=== PATIENT | female | born 1930 | race Caucasian/White ===

== ENCOUNTER 2017-08-02 00:43 | Inpatient (IN) | payer OTHER ==
[~2017-08-02] VITALS: Ht 157.5 cm; Wt 65.3 kg
[~2017-08-02 00:43] MED LIST: ACET-1346 PO; ATEN50TA PO; BISA10SU38 PR; LEVE750T PO; LPR25 PO; LPT20 PO; MAGNSUS73 PO; NOTE:; SULF800T23 PO
[2017-08-02] MEDS ORDERED: SODIUM CHLORIDE 0.9% 1000ML 1,000 ML IV SCH (01:02)
[2017-08-02 01:11] LABS: BASO % 0.3 %; BASO ABS # 0.02 K/uL (0-0.2); COMPLETE YES; EOS % 0.5 %; HEMATOCRIT 38.6 % (37-47); IG% 0.2 %; LYMPH % 23.5 %; LYMPH ABS # 1.44 K/uL (1.2-3.4); MEAN CELL VOLUME 86.5 fL (80-100); MEAN CORPUSCULAR HEMOGLOBIN 28.7 pg (25-34); MEAN CORPUSCULAR HGB CONC 33.2 g/dl (32-36); MEAN PLATELET VOLUME 10.5 fL (7.4-10.4); MONO % 8.5 %; PLATELET COUNT 156 K/uL (130-400); RED BLOOD COUNT 4.46 M/uL (4.2-5.4); WHITE BLOOD COUNT 6.14 K/uL (4.8-10.8)
[2017-08-02] MEDS ORDERED: ASPI-435 PO (01:22)
[2017-08-02] MEDS ORDERED: CITA10TA8 PO (01:22)
[2017-08-02] MEDS ORDERED: CITA20TA9 PO (01:22)
[2017-08-02] MEDS ORDERED: ATOR-22 PO (01:24)
[2017-08-02] MEDS ORDERED: ACET-1311 PO (01:24)
[2017-08-02] MEDS ORDERED: IBUP-103 PO (01:24)
[2017-08-02] MEDS ORDERED: MULT-610 PO (01:25)
--- NOTE | 2017-08-02 01:25 | EMERGENCY ROOM VISIT NOTE ---
History Report prepared by Zulyibsukhjinder: Henny Leung Under the Supervision of: Dr. Felicia Boyd D.O. 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 The patient's family states that the patient has had urinary incontinence throughout the day today which is unusual for her. Her daughter reports that her cognition has not been normal today and she notes slurred speech and blank stares throughout the day. She notes that before she went to bed and she checked on the patient who was gurgling, clenching, and foaming at the mouth and was unresponsive. The family denies any seizure activity today but reports that she does have a history of seizures in 2013 when she was diagnosed with a meningioma that has since been partially resected. Per EMS, the patient had an episode of vomiting tonight on arrival. They report that she was partially responsive and not following commands on arrival. They note that since the patient's resection, the has only been able to speak Yi. The patient complains of abdominal pain. The family notes that the patient has had a cold but they deny any chest pain and shortness of breath. The family states that they tried to take the patient for a follow up MRI of her brain 6 months ago but she did not get the MRI due to claustrophobia. 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 They complain of slurred speech and blank stares. Review of Systems See HPI for pertinent positives & negatives. A total of 10 systems reviewed and were otherwise negative. Past Medical & Surgical Medical Problems: (1) Benign brain tumor (2) History of meningioma (3) Seizure Family History No pertinent family history Social History Smoking Status: Never Smoker Alcohol Use: none Drug Use: none Marital Status: Housing Status: skilled nursing Occupation Status: retired Current/Historical Medications Scheduled Aspirin (Aspirin 81), 81 MG PO DAILY Atenolol (Tenormin), 50 MG PO DAILY Atorvastatin (Lipitor), 20 MG PO DAILY Citalopram Hydrobromide (Celexa), 10 MG PO DAILY Citalopram Hydrobromide (Celexa), 20 MG PO DAILY Multiple Vitamins W/ Minerals (Centrum Adults), 1 TAB PO DAILY Sulfamethoxazole-Trimethoprim (Bactrim Ds 800MG/160MG), 1 TAB PO BID Scheduled PRN Acetaminophen (Tylenol), 650 MG PO Q4 PRN for Pain or Fever Ibuprofen Tab (Advil), 200 MG PO Q4 PRN for Pain or Fever Polyethylene Glycol 3350 (Miralax), 17 GM PO Q12 PRN for Constipation Allergies Coded Allergies: Haloperidol (Verified Allergy, Unknown, Confusion., 02/04/14) Reported by daughters. Lorazepam (Verified Allergy, Unknown, Confusion., 02/04/14) Reported by daughters. Physical Exam Vital Signs Date Time Temp Pulse Resp B/P (MAP) Pulse Ox O2 Delivery O2 Flow Rate FiO2 08/02/17 02:13 64 19 90 Nasal Cannula 2.0 08/02/17 01:43 77 22 94 Nasal Cannula 2.0 08/02/17 01:25 93 Nasal Cannula 2.0 08/02/17 01:13 73 21 93 Nasal Cannula 2.0 08/02/17 01:09 36.7 73 18 176/86 91 Room Air 08/02/17 01:08 80 08/02/17 01:04 176/86 Physical Exam HEENT: Head - normocephalic and atraumatic. Pupils are equal, round, and reactive to light. Extraocular eye muscles are intact and sclera are anicteric. Left eyelid droop that is normal for her. Ears - bilaterally patent canals with noninjected tympanic membranes and no evidence of hemotympanum. Nose - moist nasal mucosa without discharge. Mouth - moist buccal mucosa. Oropharynx is nonerythematous and there is no tonsillar exudate or edema noted. Neck: Supple; no JVD, nuchal rigidity, cervical lymphadenopathy, or auscultated bruits. Heart: Regular rate and rhythm. There is a normal S1 and S2 with no murmurs, clicks, or gallops appreciated. Lungs: Clear to auscultation bilaterally with no wheezes, rales, or rhonchi. Abdomen: Soft, completely nontender, nondistended, with good bowel sounds. There are no palpable pulsatile masses or hepatosplenomegaly. There is no guarding, rigidity, or rebound noted. Extremities: No evidence of cyanosis, clubbing, or edema. Neuro:The patient is awake and alert, follows commands. She is alert but not oriented to time or place. There are easily palpable peripheral pulses. The patient has equal tennis player strength and equal pedal push and pull. Completed with assistance of daughters translating. Negative babinski Medical Decision & Procedures ER Provider Diagnostic Interpretation: Radiology results as stated below per my review and the radiologist's interpretation: CT HEAD: Comparison 2013. There is also an MRI from 04/04/16. No intracranial hemorrhage. Chronic appearing ischemic changes, postop changes and encephalomalacia. No CT evidence for acute large vessel infarct is identified. MRI is more sensitive, if indicated. There is some calcific density in region of surgical change. Could represent residual meningioma or possibly hyperostosis. Radiologist: Vasu Watson M.D. Laboratory Results 08/02/17 00:36 Red Blood Count 4.46, Mean Corpuscular Volume 86.5, Mean Corpuscular Hemoglobin 28.7, Mean Corpuscular Hemoglobin Concent 33.2, Mean Platelet Volume 10.5, Neutrophils (%) (Auto) 67.0, Lymphocytes (%) (Auto) 23.5, Monocytes (%) (Auto) 8.5, Eosinophils (%) (Auto) 0.5, Basophils (%) (Auto) 0.3, Neutrophils # (Auto) 4.12, Lymphocytes # (Auto) 1.44, Monocytes # (Auto) 0.52, Eosinophils # (Auto) 0.03, Basophils # (Auto) 0.02 08/02/17 01:11 Test 08/02/17 00:00 08/02/17 00:36 08/02/17 01:11 08/02/17 01:15 White Blood Count 6.14 K/uL (4.8-10.8) Red Blood Count 4.46 M/uL (4.2-5.4) Hemoglobin 12.8 g/dL (12.0-16.0) Hematocrit 38.6 % (37-47) Mean Corpuscular Volume 86.5 fL (80-100) Mean Corpuscular Hemoglobin 28.7 pg (25-34) Mean Corpuscular Hemoglobin Concent 33.2 g/dl (32-36) Platelet Count 156 K/uL (130-400) Mean Platelet Volume 10.5 fL (7.4-10.4) Neutrophils (%) (Auto) 67.0 % Lymphocytes (%) (Auto) 23.5 % Monocytes (%) (Auto) 8.5 % Eosinophils (%) (Auto) 0.5 % Basophils (%) (Auto) 0.3 % Neutrophils # (Auto) 4.12 K/uL (1.4-6.5) Lymphocytes # (Auto) 1.44 K/uL (1.2-3.4) Monocytes # (Auto) 0.52 K/uL (0.11-0.59) Eosinophils # (Auto) 0.03 K/uL (0-0.5) Basophils # (Auto) 0.02 K/uL (0-0.2) RDW Standard Deviation 47.3 fL (36.4-46.3) RDW Coefficient of Variation 14.9 % (11.5-14.5) Immature Granulocyte % (Auto) 0.2 % Immature Granulocyte # (Auto) 0.01 K/uL (0.00-0.02) Prothrombin Time 10.7 SECONDS (9.0-12.0) Prothromb Time International Ratio 1.0 (0.9-1.1) Activated Partial Thromboplast Time 25.8 SECONDS (21.0-31.0) Partial Thromboplastin Ratio 1.0 Est Creatinine Clear Calc Drug Dose 41.8 ml/min Estimated GFR () 69.0 Estimated GFR (Non- 59.5 BUN/Creatinine Ratio 14.3 (10-20) Calcium Level 8.6 mg/dl (8.5-10.1) Magnesium Level 1.9 mg/dl (1.8-2.4) Total Creatine Kinase 76 U/L (26-192) Creatine Kinase MB 0.7 ng/ml (0.5-3.6) Creatine Kinase MB Ratio 0.9 (0-3.0) Troponin I < 0.015 ng/ml (0-0.045) Bedside Hemoglobin 12.6 g/dl (12.0-16.0) Bedside Hematocrit 37 % (37-47) Bedside Sodium 142 mEq/L (135-144) Bedside Potassium 3.3 mEq/L (3.3-5.0) Bedside Chloride 103 mEq/L (101-112) Bedside Total CO2 25 mEq/l (24-31) Anion Gap 17.0 mmol/L (16-25) Bedside Blood Urea Nitrogen 12 mg/dl (7-18) Bedside Creatinine 0.8 mg/dl (0.6-1.3) Bedside Glucose (other) 141 mg/dl (70-99) Bedside Ionized Calcium (Renée) 1.12 mmol/l (1.12-1.32) Laboratory results per my review. Medications Administered Medications (Trade) Dose Ordered Sig/Martha Route Start Time Stop Time Status Last Admin Dose Admin Sodium Chloride 1,000 ml @ 50 mls/hr Q20H IV 08/02/17 01:02 08/02/17 04:05 DC 08/02/17 01:02 50 MLS/HR Procedure 0102: Sodium Chloride 1000 ml @ 50 mls/hr IV. ECG Indication: altered mental status Rate (beats per minute): 73 Rhythm: normal sinus Findings: no acute ischemic change, no ectopy ED Course 0058: Past medical records reviewed. The patient was evaluated in room B1. A complete history and physical exam was performed. A stroke protocol was performed. The patient went directly for CT scan of the brain. I discussed the situation at length with the daughters who arrived in the emergency department. 0102: Sodium Chloride 1000 ml @ 50 mls/hr IV. I kept the daughters abreast of the situation. 0205: I reevaluated the patient and updated her family. 0216: Discussed the patient's case with Dr. Fenton of [facility]. The patient will be evaluated for further management. 0239: Upon reevaluation, I discussed findings and results with the patient and her family. They verbalized agreement of the treatment plan. I spoke with Dr. Fenton of the [facility] Hospitalist Service. The patient will be evaluated for further management and care. Medical Decision The patient is a 87 year old female who presents to the ED with unresponsiveness. Differential diagnosis includes intracranial hemorrhage, seizure, stroke, recurrent meningioma. LABS: Glucose 141 Normal Renal Function Stable H&H Normal Electrolytes No leukocytosis Stable H&H Potassium slightly low at 3.2 Normal Renal Function Glucose 137 Negative Troponin Normal Coags it seems that the patient may have suffered a seizure at home. No tonic-clonic activity was witnessed but upon EMS arrival, the patient seemed to be in a postictal state. The daughter describes clenched teeth and foaming at the mouth. Of note, the patient presented 3 years ago with a seizure which led to the diagnosis of her meningioma. She has not had a follow-up CT or MRI since the neurosurgery. Seizure precautions were taken. The patient's mental status has improved but has not returned to cognitive baseline. The patient would normally know where she is but does not at this time. I discussed the case with the [facility] Hospitalist and they will evaluate further management. Medication Reconcilliation Current Medication List: was personally reviewed by me Blood Pressure Screening Patient's blood pressure: Elevated blood pressure Addressed as inpatient. Consults Time Called: [phone] Consulting Physician: Dr. Jsosy Echavarria Returned Call: [phone] Discussed the patient's case with Dr. Fenton of [facility]. The patient will be evaluated for further management. Impression Primary Impression: Altered mental status Scribe Attestation The scribe's documentation has been prepared under my direction and personally reviewed by me in its entirety. I confirm that the note above accurately reflects all work, treatment, procedures, and medical decision making performed by me. Departure Information Dispostion Being Evaluated By Hospitalist Referrals Junior Cantu III, M.D. (PCP) Patient Instructions [facility] Problem Qualifiers Primary Impression: Altered mental status Altered mental status type: unspecified Qualified Codes: R41.82 - Altered mental status, unspecified
[2017-08-02 01:26] LABS: PROTHROMBIN TIME (PATIENT) 10.7 SECONDS (9.0-12.0)
[2017-08-02] MEDS ORDERED: POLY335019 PO (01:26)
[2017-08-02 01:27] LABS: ISTAT CREATININE 0.8 mg/dl (0.6-1.3); ISTAT HEMOGLOBIN 12.6 g/dl (12.0-16.0); ISTAT IONIZED CALCIUM 1.12 mmol/l (1.12-1.32)
[2017-08-02 01:57] LABS: BLOOD UREA NITROGEN 13 mg/dl (7-18); BUN/CREATININE RATIO 14.3 (10-20); CALCIUM 8.6 mg/dl (8.5-10.1); CARBON DIOXIDE 27 mmol/L (21-32); CHLORIDE 105 mmol/L (98-107); CREATININE 0.88 mg/dl (0.60-1.20); GLUCOSE 137 mg/dl (70-99); MAGNESIUM 1.9 mg/dl (1.8-2.4); POTASSIUM 3.2 mmol/L (3.5-5.1); SODIUM 139 mmol/L (136-145)
[2017-08-02 02:01] LABS: CKMB/CK RATIO 0.9 (0-3.0)
--- NOTE | 2017-08-02 02:19 | History and Physical ---
History & Physical Date & Time of Service: Aug 02, 2017 at 02:19 Chief Complaint: unresponsiveness . Primary Care Physician: Junior Cantu III, M.D. History of Present Illness Source: patient, family, clinic records, hospital records 87 YO female followed by Dr. Cantu. History of hypertension, dyslipidemia. Was doing well until late 2012 / early 2013 when she was noted to have problems with memory. MRI August 2013 demonstrated a large frontoparietal mass measuring 5 cm with associated edema and mass effect. Appearance consistent with meningioma. Referred to Dr. Aguirre for Neurosurgical recommendations. Arrangements were made for elective resection. Prior to the scheduled surgery, patient had a generalized seizure. She was hospitalized. Meningioma was resected during that hospital stay. Was started on levetiracetam for seizure at that time. She as transferred to [facility] for rehab, eventually returned to live with her daughters (alternates between their homes). Levetiracetam was eventually discontinued. Family has noted progressive confusion since meningioma was resected. She is bilingual, speaking Slovak and Palauan, but has mostly used her venetie tongue since then. Daughter noted increasing confusion and weakness past few days. Today she was incontinent of foul-smelling urine. Also noted to have rhinitis and occasional cough. Seen in clinic. Temp was 101. Noted to have suprapubic tenderness; felt to have UTI and prescribed TMP/sulfa. Tonight around 2300 daughter found her to be unresponsive She was clenching her teeth and had upper airway sounds and foaming at the mouth. No generalized tonic-clonic activity. EMS summoned. Episode of emesis at home. Patient started to regain consciousness; daughter noted that she seemed to have weakness of LUE. Brought to ED for further evaluation. By the time of my assessment, patient was more alert and denied any problems whatsoever. . Past Medical/Surgical History Chronic and Resolved Medical Problems: (1) Dementia Status: Chronic (2) Dyslipidemia Status: Chronic (3) History of meningioma Status: Chronic (4) History of seizure Permanent Comment: associated with meningioma 2013 Status: Chronic (5) Hypertension Status: Chronic Surgical Problems: (1) Status post resection of meningioma Permanent Comment: Dr. Aguirre 2013 Status: Chronic . Family History SISTER Stroke SISTER Stroke Social History Smoking Status: Never Smoker Alcohol Use: none Drug Use: none Marital Status: Housing status: lives with family Occupational Status: retired Multi-Drug Resistant Organisms History of MDRO: No Allergies Coded Allergies: Haloperidol (Verified Allergy, Unknown, Confusion., 02/04/14) Reported by daughters. Lorazepam (Verified Allergy, Unknown, Confusion., 02/04/14) Reported by daughters. Home Medications Scheduled Aspirin (Aspirin 81), 81 MG PO DAILY Atenolol (Tenormin), 50 MG PO DAILY Atorvastatin (Lipitor), 20 MG PO DAILY Citalopram Hydrobromide (Celexa), 10 MG PO DAILY Citalopram Hydrobromide (Celexa), 20 MG PO DAILY Multiple Vitamins W/ Minerals (Centrum Adults), 1 TAB PO DAILY Sulfamethoxazole-Trimethoprim (Bactrim Ds 800MG/160MG), 1 TAB PO BID Scheduled PRN Acetaminophen (Tylenol), 650 MG PO Q4 PRN for Pain or Fever Ibuprofen Tab (Advil), 200 MG PO Q4 PRN for Pain or Fever Polyethylene Glycol 3350 (Miralax), 17 GM PO Q12 PRN for Constipation Review of Systems Unable to obtain ROS due to patient's confusion. . Physical Exam Vital Signs Date Time Temp Pulse Resp B/P (MAP) Pulse Ox O2 Delivery O2 Flow Rate FiO2 08/02/17 01:25 93 Nasal Cannula 2.0 08/02/17 01:09 36.7 73 18 176/86 91 Room Air 08/02/17 01:08 80 General Appearance: WD/WN, no apparent distress Head: normocephalic, atraumatic Eyes: PERRL, EOMI, sclerae normal, + pertinent finding (left ptosis; conjunctivae clear) ENT: hearing grossly normal, pharynx normal Neck: supple, no adenopathy, thyroid normal, no JVD, no carotid bruits, trachea midline Respiratory/Chest: lungs clear, no respiratory distress, no accessory muscle use Cardiovascular: regular rate, rhythm, no edema, no gallop, no JVD, no murmur, normal peripheral pulses Abdomen/GI: normal bowel sounds, non tender, soft, no organomegaly, no pulsatile mass Extremities/Musculoskelatal: normal inspection, no calf tenderness, normal capillary refill, no pedal edema 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 (PERRL, EOMI, no facial palsy), no motor/sensory deficits (motor strength upper and lower extremities- generalized mild weakness), alert, + disoriented Skin: normal color, warm/dry, no rash Lymphatic: no adenopathy (cervical) Diagnostics Laboratory Results Results Past 24 Hours Test 08/02/17 00:36 08/02/17 01:11 08/02/17 01:15 Range/Units White Blood Count 6.14 4.8-10.8 K/uL Red Blood Count 4.46 4.2-5.4 M/uL Hemoglobin 12.8 12.0-16.0 g/dL Hematocrit 38.6 37-47 % Mean Corpuscular Volume 86.5 80-100 fL Mean Corpuscular Hemoglobin 28.7 25-34 pg Mean Corpuscular Hemoglobin Concent 33.2 32-36 g/dl Platelet Count 156 130-400 K/uL Mean Platelet Volume 10.5 7.4-10.4 fL Neutrophils (%) (Auto) 67.0 % Lymphocytes (%) (Auto) 23.5 % Monocytes (%) (Auto) 8.5 % Eosinophils (%) (Auto) 0.5 % Basophils (%) (Auto) 0.3 % Neutrophils # (Auto) 4.12 1.4-6.5 K/uL Lymphocytes # (Auto) 1.44 1.2-3.4 K/uL Monocytes # (Auto) 0.52 0.11-0.59 K/uL Eosinophils # (Auto) 0.03 0-0.5 K/uL Basophils # (Auto) 0.02 0-0.2 K/uL RDW Standard Deviation 47.3 36.4-46.3 fL RDW Coefficient of Variation 14.9 11.5-14.5 % Immature Granulocyte % (Auto) 0.2 % Immature Granulocyte # (Auto) 0.01 0.00-0.02 K/uL Prothrombin Time 10.7 9.0-12.0 SECONDS Prothromb Time International Ratio 1.0 0.9-1.1 Activated Partial Thromboplast Time 25.8 21.0-31.0 SECONDS Partial Thromboplastin Ratio 1.0 Sodium Level 139 136-145 mmol/L Potassium Level 3.2 3.5-5.1 mmol/L Chloride Level 105 98-107 mmol/L Carbon Dioxide Level 27 21-32 mmol/L Anion Gap 7.0 17.0 16-25 mmol/L Blood Urea Nitrogen 13 7-18 mg/dl Creatinine 0.88 0.60-1.20 mg/dl Est Creatinine Clear Calc Drug Dose 41.8 ml/min Estimated GFR () 69.0 Estimated GFR (Non- 59.5 BUN/Creatinine Ratio 14.3 10-20 Random Glucose 137 70-99 mg/dl Calcium Level 8.6 8.5-10.1 mg/dl Magnesium Level 1.9 1.8-2.4 mg/dl Total Creatine Kinase 76 26-192 U/L Creatine Kinase MB 0.7 0.5-3.6 ng/ml Creatine Kinase MB Ratio 0.9 0-3.0 Troponin I < 0.015 0-0.045 ng/ml Bedside Hemoglobin 12.6 12.0-16.0 g/dl Bedside Hematocrit 37 37-47 % Bedside Sodium 142 135-144 mEq/L Bedside Potassium 3.3 3.3-5.0 mEq/L Bedside Chloride 103 101-112 mEq/L Bedside Total CO2 25 24-31 mEq/l Bedside Blood Urea Nitrogen 12 7-18 mg/dl Bedside Creatinine 0.8 0.6-1.3 mg/dl Bedside Glucose (other) 141 70-99 mg/dl Bedside Ionized Calcium (Renée) 1.12 1.12-1.32 mmol/l Diagnostic Radiology CT head (preliminary report per [facility]): postsurgical changes / encephalomalacia chronic small vessel ischemic changes no bleed no apparent acute ischemic event . EKG EKG performed at 01:06 reviewed and demonstrated NSR at 70 / minute, baseline artifact, no acute ST or T-wave changes.. . Impression Assessment and Plan ALTERED MENTAL STATUS Possible seizure. K low. Mg low-normal. Possible cerebrovascular event. CT head shows postsurgical changes from resection of meningioma, small vessel ischemic changes, no acute finding. Check MRI brain (with and without contrast). Will not start anticonvulsants pending further evaluation and Neuro input. Correct electrolyte abnormalities. Check EEG. Seizure precautions. Monitor for arrhythmias. Check carotid duplex. Continue aspirin and statin. 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 Consult Neuro. Doubt CUT OFF SAW OPERATOR infection, but consider LP if neuro status worsens. POSSIBLE UTI UA shows leukocyte esterase, WBC's, epithelial cells, no bacteria. Received 1 dose of TMP /sulfa prior to admission. Urine culture ordered. IV ceftriaxone pending culture results. RESPIRATORY SYMPTOMS Experiencing rhinorrhea and cough. BIOLOGY DEPARTMENT CHAIR swab for influenza A/B PCR negative. Check chest x-ray. HYPERTENSION Hemodynamically stable. Continue atenolol. DYSLIPIDEMIA Continue atorvastatin. DEMENTIA Monitor for signs of delirium. Avoid benzodiazepines if able. VTE PROPHYLAXIS No anticoagulants at this time- may need LP. SCD's. Ambulate as able. RESUSCITATION STATUS Full code per discussion with daughter Bianca. DISPOSITION Admit to Telemetry Unit. Expected discharge to home, but may need skilled care or rehab first. Family Medicine follow-up with Dr. Cantu. . VTE Prophylaxis Given or contraindicated: SCD's
[2017-08-02] MEDS ORDERED: IV FLUIDS COMPLETED PRN (03:00)
[2017-08-02] MEDS ORDERED: PHARMACIST DISCHARGE MED REC CONSULT PRN (03:30)
[2017-08-02] MEDS ORDERED: NON-FORMULARY MEDICATION (Polyethylene Glycol 3350 (Miralax) 17 GM) PO PRN (03:30)
[2017-08-02 03:36] LABS: URINE APPEARANCE CLEAR (CLEAR); URINE BILIRUBIN NEG (NEG); URINE COLOR YELLOW; URINE EPITHELIAL CELL AUTO >30 /lpf (0-5); URINE NITRITE NEG (NEG); URINE PH 5.5 (4.5-7.5); URINE SPECIFIC GRAVITY 1.021 (1.000-1.030); UROBILINOGEN NEG (NEG)
[2017-08-02 03:53] LABS: MANUAL MICROSCOPIC REQUIRED? NO; REVIEW REQ? YES
[2017-08-02 03:58] VITALS: BP 162/73; PULSE 62; TEMP 36.8; O2SAT 93; Ht 157.5 cm; Wt 65.3 kg
[2017-08-02] MEDS ORDERED: PNEUMOCOCCAL ADMINISTRATION CHARGE ONE (04:15)
[2017-08-02] MEDS ORDERED: POLYETHYLENE (MIRALAX) 17 GM PACK PO PRN (04:15)
[2017-08-02] MEDS ORDERED: PNEUMOCOCCAL POLYSACCHARIDES 25 MCG/0.5 ML VIAL/SYR IM. ONE (04:15)
[2017-08-02] MEDS: D5W AND 1/2NSS + 20MEQ KCL 1,000 ML IV SCH ×3 (04:59→19:36)
[2017-08-02] MEDS: CEFTRIAXONE SOD INJ 1 GM in DEXTROSE 5% ADD-VANTAGE 50ML 50 ML IV SCH (04:59)
[2017-08-02 06:15] LABS: INFLUENZA A PCR Neg for Influ A (NEG); INFLUENZA B PCR Neg for Influ B (NEG)
--- NOTE | 2017-08-02 06:38 | DIAGNOSTIC IMAGING REPORT ---
HEAD WITHOUT CONTRAST (CT) CLINICAL HISTORY: 87 years-old Female with STROKE SYMPTOMS. Acute strokelike symptoms . History of prior meningioma removal TECHNIQUE: Multiple axial CT images of the head were obtained without contrast. A dose lowering technique was utilized adhering to the principles of ALARA. COMPARISON: Head CT 11/26/2013, brain MR 04/04/2016. FINDINGS: No acute intracranial hemorrhage, midline shift or definite abnormal extra-axial collections. No hydrocephalus. Postoperative changes from prior right sphenoid wing meningioma resection with encephalomalacia and volume loss again seen within the right frontal and temporal lobes. Asymmetric ex vacuo dilation of the right lateral ventricle frontal and temporal horns. Mild to moderate background brain atrophy with chronic microvascular ischemic changes. Calcification within the region of the right sphenoid wing is again noted which has not significantly changed. No definite acute territorial infarction. No acute calvarial fracture. Postoperative changes of the right frontal and temporal calvarium. Soft tissues are unremarkable. Orbits are symmetric. Mastoid air cells and paranasal sinuses are generally clear. IMPRESSION: 1. No acute intracranial hemorrhage or definite acute territorial infarction identified. 2. Postoperative changes from prior right sphenoid wing meningioma resection with right temporal craniotomy. There is persistent calcification within the region of the right sphenoid wing which is unchanged from comparison. Encephalomalacia and volume loss within the right frontal and temporal lobes with ex vacuo dilation of the right lateral ventricle frontal and temporal horns. 3. Mild to moderate brain atrophy with chronic microvascular ischemic changes. The above report was generated using voice recognition software. It may contain grammatical, syntax or spelling errors. Electronically signed by: Sadi Palomares M.D. 08/02/2017 6:36 AM Dictated Date/Time: 08/02/2017 6:30 AM
--- NOTE | 2017-08-02 07:10 | DIAGNOSTIC IMAGING REPORT ---
CHEST ONE VIEW PORTABLE HISTORY: 87 years-old Female cough acute cough COMPARISON: Chest and rib radiographs 03/14/2015 TECHNIQUE: Portable AP view of the chest FINDINGS: Cardiac silhouette is moderately enlarged, unchanged. Atherosclerosis of the aorta. No pneumothorax or large pleural effusion. Mild pulmonary vascular congestion without overt pulmonary edema. No lobar airspace consolidation. Bones of the chest appear grossly intact. Degenerative changes are seen within the shoulders and spine. Chronic left-sided rib fractures. IMPRESSION: 1. Cardiomegaly and mild pulmonary vascular congestion without overt pulmonary edema. 2. No lobar airspace consolidation to suggest pneumonia. The above report was generated using voice recognition software. It may contain grammatical, syntax or spelling errors. Electronically signed by: Sadi Palomares M.D. 08/02/2017 7:09 AM Dictated Date/Time: 08/02/2017 7:06 AM
[2017-08-02 08:00] VITALS: BP 134/71; PULSE 59; TEMP 37; O2SAT 93
[2017-08-02] MEDS ORDERED: MAGNESIUM SULFATE 1GM / D5W 1 GM in PREMIXED IN D5W 100 ML IV SCH (08:00)
[2017-08-02] MEDS: ATORVASTATIN 20 MG TAB PO SCH (08:40)
[2017-08-02] MEDS: CITALOPRAM 20 MG TAB PO SCH (08:41)
[2017-08-02] MEDS: ASPIRIN 81 MG ECTAB PO SCH (08:42)
[2017-08-02] MEDS ORDERED: CITALOPRAM 20 MG TAB PO SCH (09:00)
[2017-08-02] MEDS ORDERED: DIAZEPAM INJ 5 MG/ML 2 ML CARP IV ONE (10:00)
[2017-08-02] MEDS ORDERED: ALPRAZOLAM 0.5 MG TAB PO STA (10:31)
[2017-08-02 12:40] VITALS: BP 137/61; PULSE 64; TEMP 36.8; O2SAT 98
--- NOTE | 2017-08-02 12:54 | DIAGNOSTIC IMAGING REPORT ---
BRAIN WITHOUT CONTRAST HISTORY: 87 years-old Female possible seizure, possible TIA, history meningioma follow-up study in a patient with history of prior right-sided wing meningioma resection COMPARISON: Head CT of same day, brain MR 04/04/2016 and 12/29/2014 TECHNIQUE: Multiplanar multisequence MRI of the brain obtained without contrast. FINDINGS: Several of the sequences are very motion degraded. No restricted diffusion identified. Midline structures including the corpus callosum, brainstem, optic chiasm, pineal gland, pituitary gland and infundibulum are unremarkable as seen on the sagittal T1 series. No cerebellar tonsillar herniation. Advanced degenerative changes are seen within the imaged cervical spine. The coronal FLAIR images are severely motion degraded. There is mild to moderate brain atrophy with extensive T2/FLAIR prolongation within the subcortical, deep and periventricular white matter of the cerebral hemispheres bilaterally suggesting chronic microvascular ischemic changes. Postoperative changes from prior right calvarial craniotomy with meningioma resection. Large area of encephalomalacia and volume loss again seen within right frontal and temporal lobes with ex vacuo dilation of the right lateral ventricle frontal and temporal horns. Again noted is a 1.2 cm ill-defined area of nodularity within the region of the medial right temporal lobe and the posterior aspect of the cribriform plate nicely seen on image 9 series 5 and also noted on image 10 series 3 and image 9 series 6 which appears unchanged from comparison studies. Evaluation for residual or recurrent disease is limited without contrast. No acute intracranial hemorrhage, midline shift or hydrocephalus. The major flow voids at the level the skull base appear patent. Orbits appear symmetric. Trace left mastoid effusion. Mild mucosal thickening of the ethmoid air cells. Scalp and soft tissues are unremarkable. IMPRESSION: 1. Limited study secondary to motion artifact as above. Within the limitations of the study, no acute intracranial abnormality identified 2. Stable appearance of the postoperative changes as above with prior right calvarial craniotomy with meningioma resection. Encephalomalacia again seen within the right frontal and temporal lobes with 1.2 cm area of nodularity again noted within the region of the cribriform plate suggesting residual disease. Again, evaluation is limited without use of contrast. 3. Brain atrophy with extensive chronic microvascular ischemic changes. The above report was generated using voice recognition software. It may contain grammatical, syntax or spelling errors. Electronically signed by: Sadi Palomares M.D. 08/02/2017 12:53 PM Dictated Date/Time: 08/02/2017 12:42 PM
--- NOTE | 2017-08-02 13:11 | DIAGNOSTIC IMAGING REPORT ---
CAROTID ARTERY ULTRASOUND CLINICAL HISTORY: Stroke. COMPARISON STUDY: None. TECHNIQUE: Real-time, grayscale, and color Doppler sonography of the carotid and vertebral arteries was performed. Images were viewed in the transverse and longitudinal planes. FINDINGS: There is mild atherosclerotic plaque. Velocity measurements are listed below. COMMON CAROTID PEAK SYSTOLIC VELOCITY (CM/S): RIGHT 74 LEFT 92 ICA PEAK SYSTOLIC VELOCITY (CM/S): RIGHT 60 LEFT 69 Antegrade flow is seen in the vertebral arteries. The external carotid arteries are patent. Blood pressures were not obtained in this patient. IMPRESSION: No evidence for a hemodynamically significant stenosis. Electronically signed by: Kalin Agee M.D. 08/02/2017 1:09 PM Dictated Date/Time: 08/02/2017 1:07 PM
[2017-08-02 15:46] VITALS: BP 130/60; PULSE 63; TEMP 36.7; O2SAT 98
[2017-08-02 16:02] LABS: BUN/CREATININE RATIO 14.9 (10-20); CALCIUM 7.9 mg/dl (8.5-10.1); CREATININE 0.78 mg/dl (0.60-1.20); MAGNESIUM 2.2 mg/dl (1.8-2.4); POTASSIUM 3.4 mmol/L (3.5-5.1)
[2017-08-02] MEDS: LEVETIRACETAM 250 MG TAB PO SCH (17:49)
--- NOTE | 2017-08-02 18:39 | NEUROLOGY CONSULTATION ---
DATE OF CONSULTATION: 08/02/2017 REASON FOR CONSULTATION: Possible seizure. HISTORY OF PRESENT ILLNESS: Mrs. Wolfe is known to me. She is an 87-year-old who presented with a decline in cognition and change in personality. She was found to have a large right frontal meningioma. This was operated on electively several months thereafter, I believe in 2013. While she waited for surgery, she had a generalized seizure and was placed on Keppra. It looks like multiple different dosing regimens were used, although probably the most commonly listed on her outpatient chart was 750 b.i.d. It appears that at some point in 2013 that Keppra was discontinued. On this background, the patient who has had ongoing cognitive issues, was noted to have increased confusion and weakness for several days prior to admission. She was incontinent of foul smelling urine, had a runny nose and occasional cough. She was seen in clinic, her temperature was 101. She was thought to have UTI and prescribed Bactrim. I do not know if she had received a dose. At 11:00 p.m., her daughter found her to be unresponsive, clenching her teeth, upper airway sounds, foaming at the mouth. She had an episode of emesis at home, she started to regain consciousness. She appeared to have weakness of the left upper extremity, brought to the Emergency Room for further evaluation. LABORATORY DATA: On admission, white count 6, H&H 12.8/38.6, platelet count 156. Coags normal. Chemistry profile notable for a potassium of 3.2. Random glucose of 137. Urinalysis notable for 10-30 white cells, negative bacteria, moderate leukocyte esterase. Her electrocardiogram showed normal sinus rhythm, nonspecific ST-T wave abnormality abnormal. PAST MEDICAL HISTORY: Notable for dementia, dyslipidemia, the aforementioned meningioma, seizure, hypertension. SURGICAL HISTORY: Resection of meningioma. FAMILY HISTORY: Stroke. SOCIAL HISTORY: Nonsmoker. Does not drink alcohol, lives with her children, is from [place]. ALLERGIES: HALDOL AND LORAZEPAM. HOME MEDICATIONS: Aspirin, atenolol, atorvastatin, Celexa 30 mg, multiple vitamin, Bactrim, Tylenol, ibuprofen p.r.n. REVIEW OF SYSTEMS: Unable to obtain secondary to patient's confusion. The MRI of the brain show was limited secondary to motion artifact, stable postop changes, right calvarial craniotomy, encephalomalacia right frontal and temporal lobe with a 1.2 cm area of nodularity noted within the region the cribriform plate suggesting residual disease. The evaluation is limited without the use of contrast and there is atrophy as well as extensive microvascular changes. PHYSICAL EXAMINATION: VITAL SIGNS: 36.7, 63, 16, 130/60, 98%. NEUROLOGIC: The patient is sleepy, but arousable, very pleasant, only speaking in minimal Romanian, mostly in Kyrgyz, able to state his name. As she answers most of the questions in Kyrgyz I am uncertain as to whether she is oriented. She has difficulty following simple commands, difficulty naming and certainly has difficulty with even 1 step commands: Her head is normocephalic, atraumatic. I can feel a well-healed high right frontoparietal craniotomy site. Her pupils are equal. She develops prompt blepharospasm. I cannot visualize the optic nerves. No obvious facial asymmetry. Speech appears to be nondysarthric. I cannot determine if there is aphasia. There appears to be symmetric strength, symmetric drift in the uppers as well as symmetric strength in the lowers. The toes are downgoing. Reflexes are otherwise symmetric and sensory, cerebellar and gait are not testable. IMPRESSION: 1. Recurrent seizure. The patient has structural brain damage related to the previously resected meningioma and ongoing risk for sz. Her fever and illness may have reduced her seizure threshold. I think it is judicious to restart Keppra. We will start it at 250 b.i.d. in an effort to not exacerbate any delirium. After 1 week, can go to 500 b.i.d. and then as an outpatient see what her level is. If it is therapeutic and she has no further events, I think she can stay on that dosing. 2. By report, she had some post-event weakness in the left upper extremity. 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 3. The patient should see Dr. Wakefield in followup. FIONA
--- NOTE | 2017-08-02 18:55 | Progress Note ---
Internal Med Progress Note Date of Service: Aug 02, 2017. Provider Documentation: SUBJECTIVE: doesn't speak Sudanese pleasant got Xanax for MRI and was sedated later talked with daughter- patient was just started on Bactrim for uti LAst night patient was unresponsive and was having foam around her mouth but later regained consciousness and was brought to ER Daughter says there was no shaking OBJECTIVE: Vital Signs-as noted below Exam: General-alert and awake. not in distress ENT-Normal hearing Neck-no neck masses Lungs-Cta b/l no wheezing or crackles Heart-S1 and S2 heard regular No murmurs Abdomen-Soft Bowel sounds present Non tender No distension Extremities-No edema No erythema Neuro-alert and awake moves extremities Lab data as noted below. ASSESSMENT & PLAN: ALTERED MENTAL STATUS Encephalopathy most likely seizure. ct and mri head no acute findings- severe micro vascular disease and post op changes with some residual meningioma UTI playing a role. seen by neurology and appreciate inputs' started on Keppra POSSIBLE UTI Received 1 dose of TMP /sulfa prior to admission. will f/u Urine culture on IV ceftriaxone RESPIRATORY SYMPTOMS Experiencing rhinorrhea and cough. 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 No consolidation on chest x-ray. abx as above HYPERTENSION stable. on atenolol. DYSLIPIDEMIA on atorvastatin. DEMENTIA will monitor for delirium. Avoid benzodiazepines if able. VTE PROPHYLAXIS hep sub q SCD's. Ambulate as able. RESUSCITATION STATUS Full code per h and p DISPOSITION Monitor in Telemetry Unit. may need placement pt/ot social service for d/c planning Vital Signs: Date Time Temp Pulse Resp B/P (MAP) Pulse Ox O2 Delivery O2 Flow Rate FiO2 08/02/17 16:00 Nasal Cannula 2.0 08/02/17 15:46 36.7 63 16 130/60 (83) 98 2.0 08/02/17 12:40 36.8 64 16 137/61 (86) 98 Nasal Cannula 2.0 08/02/17 12:00 Nasal Cannula 2.0 08/02/17 08:00 Nasal Cannula 2.0 08/02/17 08:00 37.0 59 20 134/71 (92) 93 08/02/17 04:00 Nasal Cannula 2.0 08/02/17 03:58 36.8 62 18 162/73 93 Nasal Cannula 2.0 08/02/17 03:06 65 17 91 Nasal Cannula 4.0 08/02/17 03:02 154/71 08/02/17 02:36 63 17 08/02/17 02:31 128/67 08/02/17 02:30 122/69 08/02/17 02:13 64 19 90 Nasal Cannula 2.0 08/02/17 01:43 77 22 94 Nasal Cannula 2.0 08/02/17 01:25 93 Nasal Cannula 2.0 08/02/17 01:13 73 21 93 Nasal Cannula 2.0 08/02/17 01:09 36.7 73 18 176/86 91 Room Air 08/02/17 01:08 80 08/02/17 01:04 176/86 Lab Results: Results Past 24 Hours Test 08/02/17 00:00 08/02/17 00:36 08/02/17 01:11 08/02/17 01:15 Range/Units Influenza Type A (RT-PCR) Neg for Influ A NEG Influenza Type B (RT-PCR) Neg for Influ B NEG White Blood Count 6.14 4.8-10.8 K/uL Red Blood Count 4.46 4.2-5.4 M/uL Hemoglobin 12.8 12.0-16.0 g/dL Hematocrit 38.6 37-47 % Mean Corpuscular Volume 86.5 80-100 fL Mean Corpuscular Hemoglobin 28.7 25-34 pg Mean Corpuscular Hemoglobin Concent 33.2 32-36 g/dl Platelet Count 156 130-400 K/uL Mean Platelet Volume 10.5 7.4-10.4 fL Neutrophils (%) (Auto) 67.0 % Lymphocytes (%) (Auto) 23.5 % Monocytes (%) (Auto) 8.5 % Eosinophils (%) (Auto) 0.5 % Basophils (%) (Auto) 0.3 % Neutrophils # (Auto) 4.12 1.4-6.5 K/uL Lymphocytes # (Auto) 1.44 1.2-3.4 K/uL Monocytes # (Auto) 0.52 0.11-0.59 K/uL Eosinophils # (Auto) 0.03 0-0.5 K/uL Basophils # (Auto) 0.02 0-0.2 K/uL RDW Standard Deviation 47.3 36.4-46.3 fL RDW Coefficient of Variation 14.9 11.5-14.5 % Immature Granulocyte % (Auto) 0.2 % Immature Granulocyte # (Auto) 0.01 0.00-0.02 K/uL Prothrombin Time 10.7 9.0-12.0 SECONDS Prothromb Time International Ratio 1.0 0.9-1.1 Activated Partial Thromboplast Time 25.8 21.0-31.0 SECONDS Partial Thromboplastin Ratio 1.0 Sodium Level 139 136-145 mmol/L Potassium Level 3.2 3.5-5.1 mmol/L Chloride Level 105 98-107 mmol/L Carbon Dioxide Level 27 21-32 mmol/L Anion Gap 7.0 17.0 16-25 mmol/L Blood Urea Nitrogen 13 7-18 mg/dl Creatinine 0.88 0.60-1.20 mg/dl Est Creatinine Clear Calc Drug Dose 41.8 ml/min Estimated GFR () 69.0 Estimated GFR (Non- 59.5 BUN/Creatinine Ratio 14.3 10-20 Random Glucose 137 70-99 mg/dl Calcium Level 8.6 8.5-10.1 mg/dl Magnesium Level 1.9 1.8-2.4 mg/dl Total Creatine Kinase 76 26-192 U/L Creatine Kinase MB 0.7 0.5-3.6 ng/ml Creatine Kinase MB Ratio 0.9 0-3.0 Troponin I < 0.015 0-0.045 ng/ml Bedside Hemoglobin 12.6 12.0-16.0 g/dl Bedside Hematocrit 37 37-47 % Bedside Sodium 142 135-144 mEq/L Bedside Potassium 3.3 3.3-5.0 mEq/L Bedside Chloride 103 101-112 mEq/L Bedside Total CO2 25 24-31 mEq/l Bedside Blood Urea Nitrogen 12 7-18 mg/dl Bedside Creatinine 0.8 0.6-1.3 mg/dl Bedside Glucose (other) 141 70-99 mg/dl Bedside Ionized Calcium (Renée) 1.12 1.12-1.32 mmol/l Test 08/02/17 03:09 08/02/17 15:10 Range/Units Urine Color YELLOW Urine Appearance CLEAR CLEAR Urine pH 5.5 4.5-7.5 Urine Specific [place] 1.021 1.000-1.030 Urine Protein TRACE NEG Urine Glucose (UA) NEG NEG Urine Ketones NEG NEG Urine Occult Blood NEG NEG Urine Nitrite NEG NEG Urine Bilirubin NEG NEG Urine Urobilinogen NEG NEG Urine Leukocyte Esterase MODERATE NEG Urine WBC (Auto) 10-30 0-5 /hpf Urine RBC (Auto) 0-4 0-4 /hpf Urine Hyaline Casts (Auto) 10-30 0-5 /lpf Urine Epithelial Cells (Auto) >30 0-5 /lpf Urine Bacteria (Auto) NEG NEG Urine Renal Epithelial Cells 0-5 /lpf Sodium Level 141 136-145 mmol/L Potassium Level 3.4 3.5-5.1 mmol/L Chloride Level 108 98-107 mmol/L Carbon Dioxide Level 28 21-32 mmol/L Anion Gap 5.0 3-11 mmol/L Blood Urea Nitrogen 12 7-18 mg/dl Creatinine 0.78 0.60-1.20 mg/dl Est Creatinine Clear Calc Drug Dose 46.0 ml/min Estimated GFR () 79.8 Estimated GFR (Non- 68.8 BUN/Creatinine Ratio 14.9 10-20 Random Glucose 95 70-99 mg/dl Calcium Level 7.9 8.5-10.1 mg/dl Magnesium Level 2.2 1.8-2.4 mg/dl Microbiology Results 08/02/17 Urine Culture, Received Pending
--- NOTE | 2017-08-02 19:17 | ELECTROENCEPHALOGRAPH REPORT ---
REQUESTING PHYSICIAN: Junior Fenton MD. CLINICAL DIAGNOSIS: Status post remote resection of right temporal frontal meningioma with now seizure like activity off all anticonvulsants for several years in association with a presumptive infectious illness. ELECTROENCEPHALOGRAM DIAGNOSIS: Mildly diffusely abnormal EEG with bifrontal slowing slightly worse on right, but no clear cut potentially epileptogenic activity. DESCRIPTION OF TRACING: This EEG was technically limited unfortunately with a lot of patient movement and muscle artifacts and some electrode displacement. Video analysis of the patient's behavior does confirm the presence of this type of activity. No activation procedures were utilized and drowsiness and light sleep are not clearly seen. Under these conditions, there is evidence for what appears to be a low normal background rhythm in the alpha range of about 8-9 Hz of maximum frequency and 30 microvolts of maximum amplitude. This is maximum posterior head regions bilaterally symmetrical. Polymorphic lower frequency theta activity of modest voltage is seen over all head regions with clear focal or regional predominance. Lower frequency theta intermixed with some upper frequency delta activity is seen over the frontal regions bilaterally, but with some amplitude asymmetry and perhaps some frequency decrease over the right frontal region. Again, a lot of this is unfortunately marred by muscle movement and eye blink artifacts. At no time is there evidence for a clear potentially epileptogenic activity in the form of focal sharp waves, focal spikes or polyspike waves or bursts of high amplitude sharp waves or rhythmic delta activity. INTERPRETATION: This EEG is mildly abnormal with some bifrontal slowing and a marginal reduction in the background alpha rhythm into an upper theta range at times and does suggest some slight focality on the right frontal region. This might certainly be consistent with the presence of known structural disease in that area, but there is nothing about the tracing that indicates ongoing potentially epileptogenic activity although the absence of the latter certainly does not exclude the clinical diagnosis of underlying seizure activity. Clinical correlation is required. FIONA
[2017-08-02 20:23] VITALS: BP 155/63; PULSE 65; TEMP 36.9; O2SAT 90
[2017-08-02 22:51] VITALS: BP 165/73; PULSE 61; TEMP 36.8; O2SAT 93
[2017-08-03] MEDS: CEFTRIAXONE SOD INJ 1 GM in DEXTROSE 5% ADD-VANTAGE 50ML 50 ML IV SCH (04:00)
[2017-08-03] MEDS: D5W AND 1/2NSS + 20MEQ KCL 1,000 ML IV SCH (04:18)
[2017-08-03 07:38] VITALS: BP 171/69; PULSE 66; TEMP 37.3; O2SAT 94
[2017-08-03 08:06] LABS: BASO % 0.4 %; BASO ABS # 0.02 K/uL (0-0.2); COMPLETE YES; EOS % 0.5 %; HEMATOCRIT 38.1 % (37-47); LYMPH % 15.2 %; LYMPH ABS # 0.86 K/uL (1.2-3.4); MEAN CELL VOLUME 86.6 fL (80-100); MEAN CORPUSCULAR HEMOGLOBIN 28.9 pg (25-34); MEAN CORPUSCULAR HGB CONC 33.3 g/dl (32-36); MEAN PLATELET VOLUME 10.3 fL (7.4-10.4); MONO % 17.6 %; NEUT % 66.3 %; PLATELET COUNT 140 K/uL (130-400); WHITE BLOOD COUNT 5.64 K/uL (4.8-10.8)
[2017-08-03 08:38] LABS: CALCIUM 8.3 mg/dl (8.5-10.1); CREATININE 0.73 mg/dl (0.60-1.20); MAGNESIUM 2.2 mg/dl (1.8-2.4); POTASSIUM 3.5 mmol/L (3.5-5.1)
[2017-08-03] MEDS: LEVETIRACETAM 250 MG TAB PO SCH ×2 (09:55→21:21)
[2017-08-03] MEDS: ASPIRIN 81 MG ECTAB PO SCH (09:55)
[2017-08-03] MEDS: ATORVASTATIN 20 MG TAB PO SCH (09:55)
[2017-08-03] MEDS: CITALOPRAM 20 MG TAB PO SCH (09:56)
[2017-08-03] MEDS: CEFDINIR 300 MG CAP PO SCH ×2 (11:59→21:21)
[2017-08-03] MEDS: QUETIAPINE FUMARATE 25 MG TAB PO PRN (12:00)
--- NOTE | 2017-08-03 13:22 | PROGRESS NOTE ---
DATE: 08/03/2017 SUBJECTIVE: I have seen Mrs. Wolfe in followup of the seizure. We have started her on Keppra 250 b.i.d. with a plan to escalate to 500 b.i.d. in 1 week. No seizure activity has been noted. She was agitated overnight, took her IV out and is now on oral antibiotics for her urinary tract infection. On exam, she is seated in her room with one-to-one speaking mostly in Yi. She is able to tell me some of her grandson's name, say the word communion. She follows with difficulty some simple commands. There is no obvious facial asymmetry, no upper extremity dressed. 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 She sounds as if she has been mildly delirious. It is very likely that she would do better at home and I would recommend if there are any ongoing medical needs that require hospitalization and that the daughters think they can handle her at home that she would do better at home. I would continue the Keppra 250 b.i.d. for a week and then 500 b.i.d. checking the level about 10 days thereafter. In the past, she required 750 b.i.d. I do know if that was on the basis of the breakthrough seizure or low levels. From a neurologic perspective, if the family can handle the patient, I have no objection if she goes home. She should follow up with Dr. Wakefield. FIONA
[2017-08-03 14:33] VITALS: BP 171/70; PULSE 57; TEMP 37.4; O2SAT 90
[2017-08-03 17:51] VITALS: BP 156/65; PULSE 62; O2SAT 93
[2017-08-03] MEDS ORDERED: CLONIDINE HCL 0.1 MG TAB PO PRN (18:15)
--- NOTE | 2017-08-03 18:22 | Progress Note ---
Internal Med Progress Note Date of Service: Aug 03, 2017. Provider Documentation: SUBJECTIVE: was agitated last night and pulled out iv line currently sleeping afebrile not ate much in the morning hemodynamics stable daughter was in the room and is ok for placement if required OBJECTIVE: Vital Signs-as noted below Exam: General-Drowsy. not in distress ENT-Normal hearing Neck-no neck masses Lungs-Cta b/l no wheezing or crackles Heart-S1 and S2 heard regular No murmurs Abdomen-Soft Bowel sounds present Non tender No distension Extremities-No edema No erythema Neuro-drowsy Lab data as noted below. ASSESSMENT & PLAN: ALTERED MENTAL STATUS Encephalopathy most likely seizure. ct and mri head no acute findings- severe micro vascular disease and post op changes with some residual meningioma UTI playing a role. seen by neurology and appreciate inputs' started on Keppra 250mg bid adn then to increase to 500mg bid after one week and to check levels 10days after that to f/u with neurology POSSIBLE UTI Received 1 dose of TMP /sulfa prior to admission. will f/u Urine culture pulled out iv line changed Rocephin to po Omnicef await final cx RESPIRATORY SYMPTOMS Experiencing rhinorrhea and cough. 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 No consolidation on chest x-ray. abx as above HYPERTENSION on atenolol. clonidine prn DYSLIPIDEMIA on atorvastatin. DEMENTIA delirium. Avoid benzodiazepines if able. Seroquel prn VTE PROPHYLAXIS hep sub q SCD's. Ambulate as able. RESUSCITATION STATUS Full code per h and p DISPOSITION Monitor in Telemetry Unit. may need placement pt/ot social service for d/c planning Vital Signs: Date Time Temp Pulse Resp B/P (MAP) Pulse Ox O2 Delivery O2 Flow Rate FiO2 08/03/17 17:51 62 18 156/65 (95) 93 Room Air 08/03/17 16:00 Nasal Cannula 2.0 08/03/17 14:33 37.4 57 20 171/70 (103) 90 Room Air 08/03/17 12:00 Nasal Cannula 2.0 08/03/17 08:00 Nasal Cannula 2.0 08/03/17 07:38 37.3 66 20 171/69 (103) 94 Room Air 08/03/17 04:00 Nasal Cannula 2.0 08/03/17 00:00 Nasal Cannula 2.0 12/22/17 22:51 36.8 61 20 165/73 (103) 93 Room Air 08/02/17 20:23 36.9 65 20 155/63 (93) 90 Room Air 08/02/17 20:00 Nasal Cannula 2.0 Lab Results: Results Past 24 Hours Test 08/03/17 07:28 Range/Units White Blood Count 5.64 4.8-10.8 K/uL Red Blood Count 4.40 4.2-5.4 M/uL Hemoglobin 12.7 12.0-16.0 g/dL Hematocrit 38.1 37-47 % Mean Corpuscular Volume 86.6 80-100 fL Mean Corpuscular Hemoglobin 28.9 25-34 pg Mean Corpuscular Hemoglobin Concent 33.3 32-36 g/dl Platelet Count 140 130-400 K/uL Mean Platelet Volume 10.3 7.4-10.4 fL Neutrophils (%) (Auto) 66.3 % Lymphocytes (%) (Auto) 15.2 % Monocytes (%) (Auto) 17.6 % Eosinophils (%) (Auto) 0.5 % Basophils (%) (Auto) 0.4 % Neutrophils # (Auto) 3.74 1.4-6.5 K/uL Lymphocytes # (Auto) 0.86 1.2-3.4 K/uL Monocytes # (Auto) 0.99 0.11-0.59 K/uL Eosinophils # (Auto) 0.03 0-0.5 K/uL Basophils # (Auto) 0.02 0-0.2 K/uL RDW Standard Deviation 47.1 36.4-46.3 fL RDW Coefficient of Variation 14.8 11.5-14.5 % Immature Granulocyte % (Auto) 0.0 % Immature Granulocyte # (Auto) 0.00 0.00-0.02 K/uL Sodium Level 141 136-145 mmol/L Potassium Level 3.5 3.5-5.1 mmol/L Chloride Level 106 98-107 mmol/L Carbon Dioxide Level 27 21-32 mmol/L Anion Gap 7.0 3-11 mmol/L Blood Urea Nitrogen 7 7-18 mg/dl Creatinine 0.73 0.60-1.20 mg/dl Est Creatinine Clear Calc Drug Dose 48.5 ml/min Estimated GFR () 86.4 Estimated GFR (Non- 74.6 BUN/Creatinine Ratio 10.0 10-20 Random Glucose 77 70-99 mg/dl Calcium Level 8.3 8.5-10.1 mg/dl Magnesium Level 2.2 1.8-2.4 mg/dl
[2017-08-03 21:27] VITALS: BP 155/80; PULSE 69; TEMP 37.5; O2SAT 91
[2017-08-03] MEDS: ACETAMINOPHEN 325 MG TAB PO PRN (21:30)
[2017-08-04] VITALS (7 sets, daily range): BP systolic 118–166; BP diastolic 69–85; PULSE 61–73; TEMP 36.6–37.3; O2SAT 90–94
[2017-08-04 08:50] LABS: CALCIUM 8.3 mg/dl (8.5-10.1); CREATININE 0.77 mg/dl (0.60-1.20); POTASSIUM 3.6 mmol/L (3.5-5.1)
[2017-08-04] MEDS: ASPIRIN 81 MG ECTAB PO SCH (09:47)
[2017-08-04] MEDS: ATORVASTATIN 20 MG TAB PO SCH (09:47)
[2017-08-04] MEDS: CITALOPRAM 20 MG TAB PO SCH (09:47)
[2017-08-04] MEDS: CEFDINIR 300 MG CAP PO SCH ×2 (09:48→21:13)
[2017-08-04] MEDS: LEVETIRACETAM 250 MG TAB PO SCH ×2 (09:49→21:13)
--- NOTE | 2017-08-04 13:36 | Progress Note ---
Internal Med Progress Note Date of Service: Aug 04, 2017. Provider Documentation: SUBJECTIVE: alert and awake and pleasant daughter in room afebrile says pain all over ate little has cough OBJECTIVE: Vital Signs-as noted below Exam: General-alert and awake. not in distress ENT-Normal hearing Neck-no neck masses Lungs-Cta b/l no wheezing or crackles Heart-S1 and S2 heard regular No murmurs Abdomen-Soft Bowel sounds present Non tender No distension Extremities-No edema No erythema Neuro-alert and awake 'moves extremities Lab data as noted below. ASSESSMENT & PLAN: ALTERED MENTAL STATUS Encephalopathy most likely seizure. ct and mri head no acute findings- severe micro vascular disease and post op changes with some residual meningioma UTI playing a role. seen by neurology and appreciate inputs' started on Keppra 250mg bid adn then to increase to 500mg bid after one week and to check levels 10days after that seems improving to f/u with neurology POSSIBLE UTI Received 1 dose of TMP /sulfa prior to admission. will f/u Urine culture pulled out iv line changed Rocephin to po Omnicef cx no growth probably since abx already started will complete one week course RESPIRATORY SYMPTOMS Experiencing rhinorrhea and cough. 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 No consolidation on chest x-ray. abx as above consider adding zpak HYPERTENSION on atenolol. clonidine prn DYSLIPIDEMIA on atorvastatin. DEMENTIA delirium. Avoid benzodiazepines if able. Seroquel prn VTE PROPHYLAXIS hep sub q SCD's. Ambulate as able. RESUSCITATION STATUS Full code per h and p DISPOSITION Monitor in Telemetry Unit. may need placement pt/ot social service for d/c planning Vital Signs: Date Time Temp Pulse Resp B/P (MAP) Pulse Ox O2 Delivery O2 Flow Rate FiO2 08/04/17 11:24 36.7 66 18 147/85 (105) 92 Room Air 08/04/17 08:00 Room Air 08/04/17 07:13 36.6 73 18 118/73 (88) 92 Room Air 08/04/17 04:46 36.8 61 18 150/69 (96) 94 Room Air 08/04/17 04:00 Room Air 08/04/17 00:07 37.3 61 18 132/75 (94) 94 Room Air 08/04/17 00:00 Room Air 08/03/17 21:27 37.5 69 18 155/80 (105) 91 Room Air 08/03/17 20:00 Room Air 08/03/17 17:51 62 18 156/65 (95) 93 Room Air 08/03/17 16:00 Nasal Cannula 2.0 08/03/17 14:33 37.4 57 20 171/70 (103) 90 Room Air Lab Results: Results Past 24 Hours Test 08/04/17 07:32 Range/Units Sodium Level 141 136-145 mmol/L Potassium Level 3.6 3.5-5.1 mmol/L Chloride Level 107 98-107 mmol/L Carbon Dioxide Level 26 21-32 mmol/L Anion Gap 8.0 3-11 mmol/L Blood Urea Nitrogen 17 7-18 mg/dl Creatinine 0.77 0.60-1.20 mg/dl Est Creatinine Clear Calc Drug Dose 46.7 ml/min Estimated GFR () 81.0 Estimated GFR (Non- 69.9 BUN/Creatinine Ratio 22.0 10-20 Random Glucose 73 70-99 mg/dl Calcium Level 8.3 8.5-10.1 mg/dl
--- NOTE | 2017-08-04 13:56 | PROGRESS NOTE ---
DATE: 08/04/2017 OBJECTIVE: I am seeing Mrs. Wolfe in followup of her recurrent seizure while off anticonvulsant, she is on Keppra 250 b.i.d. The aide that is in the room with her indicates that she has been occasionally speaking more Nicaraguan than Italian. She had a reasonably good appetite. No seizures have been noted. OBJECTIVE: VITAL SIGNS: She is afebrile, 36.7, 66, 18, 147/85, 92%. GENERAL: Awake and alert, speaking in Italian, following very minimal commands and occasionally speaking in Nicaraguan pleasantries. IMPRESSION: The patient is status post resection of large right frontal meningioma with significant encephalomalacia in that region as well as significant vascular changes and associated multifactorial dementia. The patient has not had any recurrent seizures, after a week she should escalate keppra to 500 mg b.i.d. and check a level in 10 d.. In the past she was on 750 b.i.d., I do not know if that is because she had a breakthrough seizure at 500 mg bid. She should see Dr. Wakefield in followup. [facility]
[2017-08-05 01:50] VITALS: BP 158/75; PULSE 71
[2017-08-05 04:00] VITALS: BP 157/76; PULSE 72; TEMP 37.3; O2SAT 90
[2017-08-05 07:16] VITALS: BP 150/82; PULSE 66; TEMP 37.3; O2SAT 92
[2017-08-05] MEDS: LEVETIRACETAM 250 MG TAB PO SCH ×2 (08:26→20:32)
[2017-08-05] MEDS: CITALOPRAM 20 MG TAB PO SCH (08:27)
[2017-08-05] MEDS: ASPIRIN 81 MG ECTAB PO SCH (08:28)
[2017-08-05] MEDS: CEFDINIR 300 MG CAP PO SCH ×2 (08:28→20:32)
[2017-08-05] MEDS: ATORVASTATIN 20 MG TAB PO SCH (08:29)
[2017-08-05 11:30] VITALS: BP 132/76; PULSE 59; TEMP 36.7; O2SAT 94
--- NOTE | 2017-08-05 13:12 | PROGRESS NOTE ---
DATE: 08/05/2017 SUBJECTIVE: I have seen Ms. Wolfe in followup recurrent seizure of anticonvulsant status post resection of a large right frontal meningioma with polyfactorial dementia. She has not had any recurrent events on Keppra 250 b.i.d. She is sleepy but arousable, primarily speaking in Divehi, is able to say Emily Orly, no obvious facial asymmetry. She follows commands with her upper extremities. IMPRESSION AND PLAN: Recurrent seizure off Keppra, continue Keppra 250 b.i.d. and once she has been on that dose for 1 week and 500 b.i.d., a level 10 days thereafter and follow up with Dr. Wakefield postdischarge. Will sign off at this point. [facility]
[2017-08-05 16:57] VITALS: BP 123/70; PULSE 63; TEMP 36.8; O2SAT 94
--- NOTE | 2017-08-05 19:13 | Progress Note ---
Internal Med Progress Note Date of Service: Aug 05, 2017. Provider Documentation: SUBJECTIVE: alert and awake and pleasant daughter in room not putting on dentures as per daughter eating little but better than yesterday daughter thinks confusion is clearing patient used to speak some Prydeinig in the past but currently speaks only occasionally since her brain surgery for meningioma OBJECTIVE: Vital Signs-as noted below Exam: General-alert and awake. not in distress ENT-Normal hearing Neck-no neck masses Lungs-Cta b/l no wheezing or crackles Heart-S1 and S2 heard regular No murmurs Abdomen-Soft Bowel sounds present Non tender No distension Extremities-No edema No erythema Neuro-alert and awake 'moves extremities Lab data as noted below. ASSESSMENT & PLAN: 87f WHO LIVES WITH DAUGHTER WAS BROUGHT IN FOR POSSIBLE SEIZURE. IN 2013 PATIENT HAD SURGERY FOR LARGE large frontoparietal mass (MENINGIOMA) measuring 5 cm WITH EDEMA AND MASS EFFECT.SUPPOSED TO BE ON KEPPRA BUT WAS TAPERED OFF. SINCE SURGERY NOT SPEAKING SCOTTISH ONLY CONVERSING IN PANAMANIAN(MOTHER ALEXEY). FEW DAYS BEFORE ADMISSION DAUGHTER NOTED PATIENT WAS GETTING CONFUSED AND WAS DX WITH UTI AND STARTED ON BACTRIM BY PCP. SHE JUST TOOK ONE DAY DOSE OF BACTRIM. ON THE DAY OF ADMISSION NIGHT PATIENT WAS FOUND UNRESPONSIVE WITH FOAMING AT MOUTH FOR SOME TIME, NO TONIC-CLONIC ACTIVITY. . BUT LATER WOKE UP AND WAS FINE. BROUGHT TO ER. MRI HEAD NO ACUTE FINDINGS. MOSTLY SEIZURES PER NEUROLOGY. STARTED ON KEPPRA.HAD DELIRIUM . RECEIVED SEROQUEL. CURRENTLY DOING FINE. ON OMNICEF FOR UTI. DAUGHTER LIKES PATIENT TO BE PLACED FOR PT/OT SOCIAL SERVICE FOR D/C PLANNING ALTERED MENTAL STATUS Encephalopathy most likely seizure. ct and mri head no acute findings- severe micro vascular disease and post op changes with some residual meningioma UTI playing a role. seen by neurology and appreciate inputs' started on Keppra 250mg bid and then to increase to 500mg bid after one week and to check levels 10days after that seems improving to f/u with neurology POSSIBLE UTI Received 1 dose of TMP /sulfa prior to admission. will f/u Urine culture pulled out iv line changed Rocephin to po Omnicef # 4 cx no growth probably since abx already started will complete one week course RESPIRATORY SYMPTOMS Experiencing rhinorrhea and cough. POLE CLASSIFIER swab for influenza A/B PCR negative. No consolidation on chest x-ray. abx as above consider adding zpak HYPERTENSION on atenolol. clonidine prn DYSLIPIDEMIA on atorvastatin. DEMENTIA delirium. Avoid benzodiazepines if able. Seroquel prn VTE PROPHYLAXIS hep sub q SCD's. Ambulate as able. RESUSCITATION STATUS Full code per h and p DISPOSITION My transfer to medical floor may need placement pt/ot social service for d/c planning Vital Signs: Date Time Temp Pulse Resp B/P (MAP) Pulse Ox O2 Delivery O2 Flow Rate FiO2 08/05/17 16:57 36.8 63 16 123/70 (87) 94 Room Air 08/05/17 16:00 Room Air 08/05/17 13:57 Room Air 08/05/17 11:30 36.7 59 16 132/76 (94) 94 Room Air 08/05/17 08:00 Room Air 08/05/17 07:16 37.3 66 16 150/82 (104) 92 Room Air 08/05/17 04:00 37.3 72 18 157/76 (103) 90 Room Air 08/05/17 04:00 Room Air 08/05/17 01:50 71 158/75 (102) 08/05/17 00:00 Room Air 08/04/17 23:50 37.3 73 24 166/80 (108) 90 Room Air 08/04/17 20:00 Room Air
[2017-08-05 20:04] VITALS: BP 142/78; PULSE 69; TEMP 37.1; O2SAT 92
[2017-08-05] MEDS: QUETIAPINE FUMARATE 25 MG TAB PO PRN (20:33)
[2017-08-06] VITALS (7 sets, daily range): BP systolic 109–164; BP diastolic 69–87; PULSE 58–74; TEMP 36.7–37.3; O2SAT 93–96
[2017-08-06] MEDS: ATORVASTATIN 20 MG TAB PO SCH (08:12)
[2017-08-06] MEDS: ACETAMINOPHEN 325 MG TAB PO PRN (08:12)
[2017-08-06] MEDS: CEFDINIR 300 MG CAP PO SCH ×2 (08:12→21:23)
[2017-08-06] MEDS: CITALOPRAM 20 MG TAB PO SCH (08:13)
[2017-08-06] MEDS: LEVETIRACETAM 250 MG TAB PO SCH ×2 (08:13→21:23)
[2017-08-06] MEDS: ASPIRIN 81 MG ECTAB PO SCH (08:14)
--- NOTE | 2017-08-06 17:33 | Progress Note ---
Medicine Progress Note Date & Time of Visit: Aug 06, 2017 at 13:40. Subjective 87 yoF with seizure history s/p meningioma resection was found down at home and foaming at mouth unresponsive at home, apparently suffering a seizure. She was admitted and placed on Keppra. Neurology was consulted and recommended a Keppra titration as she has an ongoing seizure risk with structural brain damage related to the previously resected meningioma. It is thought that her UTI likely brought her to her seizure threshold and this is being treated with Cefdinir. A brain MRI was performed revealing post-op changes and extensive chronic microvascular ischemic changes but no acute ischemic infarction. She currently is only conversing with her daughters in Salvadorean who are both at the bedside and are reporting that she is doing well and is at her baseline mental status. She has non-functional dementia with behavioral disturbances and is completely dependent on her two daughters who take care of her. She is going to inpatient rehab as a transition to home. Objective Last 8 Hrs Date Time Temp Pulse Resp B/P (MAP) Pulse Ox O2 Delivery O2 Flow Rate FiO2 08/06/17 11:20 36.7 63 16 123/72 (89) 95 Room Air 08/06/17 08:00 Room Air 08/06/17 07:11 37.3 74 16 164/87 (112) 93 Room Air Physical Exam: GEN: WNWD, in no acute distress, alert and conversing with daughters who say she is at baseline mental status. Pt is speaking Salvadorean mostly. HEENT: NC/AT, pupils are round and equal bilaterally, normal sclerae, MMM CARDIO: reg rate, S1/2 heard without m/g/r LUNGS: CTA bilaterally, no crackles, rales or wheezes, good diaphragmatic excursion ABD: soft, non-tender, non-distended, no rebound or guarding, +BS EXTREMITY: RP and DP palpable 2+ bilat, no LE swelling or edema, extremities are warm and well-perfused NEURO: no gross focal deficits. MUSC: moves all extremities equally. SKIN: warm and dry Assessment & Plan 87 yoF with seizure history s/p meningioma resection was found down at home and foaming at mouth unresponsive at home, apparently suffering a seizure. She was admitted and placed on Keppra. Neurology was consulted and recommended a Keppra titration as she has an ongoing seizure risk with structural brain damage related to the previously resected meningioma. It is thought that her UTI likely brought her to her seizure threshold and this is being treated with Cefdinir. A brain MRI was performed revealing post-op changes and extensive chronic microvascular ischemic changes but no acute ischemic infarction. She currently is only conversing with her daughters in Salvadorean who are both at the bedside and are reporting that she is doing well and is at her baseline mental status. She has non-functional dementia with behavioral disturbances and is completely dependent on her two daughters who take care of her. She is going to inpatient rehab as a transition to home. 1. AMS-initially related to the seizure. CT and MRI head with no acute findings. Appears to be resolved to baseline per family. 2. Dementia-likley multifactorial including chronic microvascular disease and s /p meningioma removal along with advanced age. At baseline mentation and behavior per family. Seroquel PRN. 3. Seizure disorder-remains seizure-free on initial Keppra dose of 250mg PO BID. Will increase to 500mg PO BID per Neuro on 08/08 and then check a level with outpatient Neurology follow-up. 4. 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 No outpatient culture available as patient is demented and could not give a sample. Urine culture during this admission reveals three types of organisms present. Cont cefdinir for total 7 days. 5. HTN-controlled on atenolol and clonidine PRN 6. Ambulatory dysfunction-going to rehab as transition to home. Per family, she is very active and ambulates independently at home. DVT proph: Lovenox added Full code Dispo-to rehab tomorrow. Blanca King DO [facility] Hospitalist Consultants: Neuro-Dr. Dominguez Current Inpatient Medications: Current Inpatient Medications Medications (Trade) Dose Ordered Sig/Martha Route Start Time Stop Time Status Last Admin Dose Admin Miscellaneous (Iv Fluids Completed) 1 ea PRN PRN N/A 08/02/17 03:00 08/02/18 02:59 Acetaminophen (Tylenol Tab) 650 mg Q4H PRN PO 08/02/17 03:30 09/01/17 03:29 08/06/17 08:12 650 MG Aspirin (Ecotrin Tab) 81 mg DAILY PO 08/02/17 09:00 09/01/17 08:59 08/06/17 08:14 81 MG Atenolol (Tenormin Tab) 50 mg DAILY PO 08/02/17 09:00 09/01/17 08:59 08/06/17 08:14 50 MG Atorvastatin Calcium (Lipitor Tab) 20 mg DAILY PO 08/02/17 09:00 09/01/17 08:59 08/06/17 08:12 20 MG Citalopram Hydrobromide (celeXA TAB) 30 mg DAILY PO 08/02/17 09:00 09/01/17 08:59 08/06/17 08:13 30 MG Polyethylene (Miralax Powder Packet) 17 gm Q12H PRN PO 08/02/17 04:15 09/01/17 04:14 Levetiracetam (Keppra Tab) 250 mg BID PO 08/02/17 17:30 09/01/17 17:29 08/06/17 08:13 250 MG Cefdinir (Omnicef Cap) 300 mg Q12 PO 08/03/17 11:00 08/13/17 10:59 08/06/17 08:12 300 MG Quetiapine Fumarate (seroQUEL TAB) 25 mg TID PRN PO 08/03/17 11:00 09/02/17 10:59 08/05/17 20:33 25 MG Clonidine HCl (Catapres Tab) 0.1 mg Q6 PRN PO 08/03/17 18:15 09/02/17 18:14
[2017-08-06] MEDS ORDERED: ENOXAPARIN 40 MG/0.4 ML SYR SQ SCH (18:00)
[2017-08-06] MEDS: QUETIAPINE FUMARATE 25 MG TAB PO PRN (23:26)
[2017-08-07 07:28] VITALS: BP 152/88; PULSE 63; TEMP 36.6; O2SAT 92
[2017-08-07] MEDS: ATORVASTATIN 20 MG TAB PO SCH (08:13)
[2017-08-07] MEDS: CITALOPRAM 20 MG TAB PO SCH (08:14)
[2017-08-07] MEDS: LEVETIRACETAM 250 MG TAB PO SCH (08:15)
[2017-08-07] MEDS: ASPIRIN 81 MG ECTAB PO SCH (08:15)
[2017-08-07] MEDS: CEFDINIR 300 MG CAP PO SCH (08:16)
[2017-08-07] MEDS ORDERED: CEFD300C3 PO (13:19)
[2017-08-07] MEDS ORDERED: LEVE500T13 PO (13:19)
[2017-08-07 13:21] VITALS: BP 152/88; PULSE 63; TEMP 36.6; O2SAT 92
--- NOTE | 2017-08-07 13:25 | Discharge Instructions ---
Discharge Instructions Date of Service Aug 07, 2017. Admission Reason for Admission: Seizure Discharge Discharge Diagnosis / Problem: seizure, UTI Discharge Goals Goal(s): Prevent Disease Progression Activity Recommendations Activity Limitations: per Instructions/Follow-up section . Instructions / Follow-Up Instructions / Follow-Up Please continue all medications as instructed. You will continue CEFDINIR until 08/09 with the last dose on 08/09. You will continue KEPPRA at 500mg twice daily. You will need a KEPPRA LEVEL drawn in ten days (on or after 08/19/17). This level should be reported to Dr. Farzana Casarez at [facility] Neu[facility]. Please followup with this Neurology group as instructed or within 4 weeks of discharge. It is recommended to follow-up with your Primary Care Provider one week after discharge from the rehab facility. It was a pleasure taking care of you! Call if you have any questions or problems. You can reach a [facility] hospitalist on duty at [facility] 24 hours a day by calling [phone]. Take care of yourself. Blanca King DO [facility] Hospitalist Current Hospital Diet Patient's current hospital diet: Regular Diet Discharge Diet Recommended Diet: Regular Diet Diet Texture: Pureed (blended smooth) (Moist; all soups ok, waffles/pancakes/ soft desserts ok) Procedures Procedures Performed: None. Pending Studies Studies pending at discharge: no Medical Emergencies . Who to Call and When: Medical Emergencies: If at any time you feel your situation is an emergency, please call 911 immediately. . Non-Emergent Contact Non-Emergency issues call your: Primary Care Provider . . "Provider Documentation" section prepared by Blanca King. . VTE Core Measure Inpt VTE Proph given/why not?: Enoxaparin (Lovenox)SQ, SCD's
--- NOTE | 2017-08-07 13:29 | Discharge Summary ---
Discharge Summary Date of Service Aug 07, 2017. 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 Vaccinations: None. Consultations: Neuro-Dr. Dominguez Pending Studies/Follow-Up: see instructions below. Medication Reconciliation New Medications: Levetiracetam (Keppra) 500 Mg Tab 1 TAB PO BID for 10 Days, #20 TAB 3 Refills Cefdinir (Cefdinir) 300 Mg Cap 300 MG PO Q12 for 3 Days, #6 CAP Last dose to be given on 08/09 Continued Medications: Acetaminophen (Tylenol) 325 Mg Tab 650 MG PO Q4 PRN for Pain or Fever, TAB Aspirin (Aspirin 81) 81 Mg Tab 81 MG PO DAILY Atenolol (Tenormin) 50 Mg Tab 50 MG PO DAILY, TAB Atorvastatin (Lipitor) 20 Mg Tab 20 MG PO DAILY, TAB Citalopram Hydrobromide (Celexa) 10 Mg Tab 10 MG PO DAILY, TAB Citalopram Hydrobromide (Celexa) 20 Mg Tab 20 MG PO DAILY, TAB Ibuprofen Tab (Advil) 200 Mg Tab 200 MG PO Q4 PRN for Pain or Fever Multiple Vitamins W/ Minerals (Centrum Adults) 1 Tab Tab 1 TAB PO DAILY Polyethylene Glycol 3350 (Miralax) 1 Pow Pow 17 GM PO Q12 PRN for Constipation, #527 use as needed until loose stools Discontinued Medications: Sulfamethoxazole-Trimethoprim (Bactrim Ds 800MG/160MG) 1 Tab Tab 1 TAB PO BID for 7 Days Admission Information HPI (per Admitting provider): 87 YO female followed by Dr. Cantu. History of hypertension, dyslipidemia. Was doing well until late 2012 / early 2013 when she was noted to have problems with memory. MRI August 2013 demonstrated a large frontoparietal mass measuring 5 cm with associated edema and mass effect. Appearance consistent with meningioma. Referred to Dr. Aguirre for Neurosurgical recommendations. Arrangements were made for elective resection. Prior to the scheduled surgery, patient had a generalized seizure. She was hospitalized. Meningioma was resected during that hospital stay. Was started on levetiracetam for seizure at that time. She as transferred to [facility] for rehab, eventually returned to live with her daughters (alternates between their homes). Levetiracetam was eventually discontinued. Family has noted progressive confusion since meningioma was resected. She is bilingual, speaking British and Chinese, but has mostly used her [place] tongue since then. Daughter noted increasing confusion and weakness past few days. Today she was incontinent of foul-smelling urine. Also noted to have rhinitis and occasional cough. Seen in clinic. Temp was 101. Noted to have suprapubic tenderness; felt to have UTI and prescribed TMP/sulfa. Tonight around 2300 daughter found her to be unresponsive She was clenching her teeth and had upper airway sounds and foaming at the mouth. No generalized tonic-clonic activity. EMS summoned. Episode of emesis at home. Patient started to regain consciousness; daughter noted that she seemed to have weakness of LUE. Brought to ED for further evaluation. By the time of my assessment, patient was more alert and denied any problems whatsoever. . Physical Exam (per Admitting): General Appearance: WD/WN, no apparent distress Head: normocephalic, atraumatic Eyes: PERRL, EOMI, sclerae normal, + pertinent finding (left ptosis; conjunctivae clear) ENT: hearing grossly normal, pharynx normal Neck: supple, no adenopathy, thyroid normal, no JVD, no carotid bruits, trachea midline Respiratory/Chest: lungs clear, no respiratory distress, no accessory muscle use Cardiovascular: regular rate, rhythm, no edema, no gallop, no JVD, no murmur , normal peripheral pulses Abdomen/GI: normal bowel sounds, non tender, soft, no organomegaly, no pulsatile mass Extremities/Musculoskelatal: normal inspection, no calf tenderness, normal capillary refill, no pedal edema Neurologic/Psych: manager of learning II-XII nml as tested (PERRL, EOMI, no facial palsy), no motor/sensory deficits (motor strength upper and lower extremities- generalized mild weakness), alert, + disoriented Skin: normal color, warm/dry, no rash Lymphatic: no adenopathy (cervical) Hospital Course 87 yoF with seizure history s/p meningioma resection was found down at home and foaming at mouth unresponsive, apparently suffering a seizure. She was admitted and placed on Keppra, notably not on any antiepileptics as an outpatient. Neurology was consulted and recommended a Keppra titration ( increase) as she has an ongoing seizure risk with structural brain damage related to the previously resected meningioma. It is thought that her UTI likely brought her to her seizure threshold and this is being treated with Cefdinir. A brain MRI was performed revealing post-op changes and extensive chronic microvascular ischemic changes but no acute ischemic infarction. She has a severe dementia that is multifactorial thought in part to be secondary to vascular disease. She currently is only conversing with her daughters in British who are both at the bedside and are reporting that she is doing well and is at her baseline mental status. She has non-functional dementia with behavioral disturbances and is completely dependent on her two daughters who take care of her. She is going to inpatient rehab as a transition to home. 1. AMS-initially related to the seizure. CT and MRI head with no acute findings. Appears to be resolved to baseline per family. 2. Dementia-likley multifactorial including chronic microvascular disease and s /p meningioma removal along with advanced age. At baseline mentation and behavior per family. Seroquel PRN. 3. Seizure disorder-remains seizure-free on initial Keppra dose of 250mg PO BID. Will increase to 500mg PO BID per Neuro on 08/08 and then check a level with outpatient Neurology follow-up. 4. 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 No outpatient culture available as patient is demented and could not give a sample. Urine culture during this admission reveals three types of organisms present. Cont cefdinir for total 7 days. 5. HTN-controlled on atenolol and clonidine PRN 6. Ambulatory dysfunction-going to rehab as transition to home. Per family, she is very active and ambulates independently at home. After a few days of monitoring and antibiotics she appeared improved and stable. On day of discharge she was mentating at baseline and tolerating PO. She was generally weak and was not at baseline ambulation but was heading to rehab for this. She was afebrile and hemodynamically stable and was discharged in stable condition. She (and family) was instructed how to increase her Keppra and that she would need a Keppra level drawn shortly after that increase with Neurology follow-up to discuss. Family verbalized understanding with intent to comply. Total time spent on discharge = 60 minutes This includes examination of the patient, discharge planning, medication reconciliation, and communication with other providers. Discharge Instructions [facility] [address] [place] [address] Discharge Medical Patient Name: Arthur Wolfe Unit Number: [id number] Date of : 1930 Patient Status: Admitted Inpatient Attending Doctor: Blanca King DO DI: Medical v4 Discharge Instructions Date of Service Aug 07, 2017. Admission Reason for Admission: Seizure Discharge Discharge Diagnosis / Problem: seizure, UTI Discharge Goals Goal(s): Prevent Disease Progression Activity Recommendations Activity Limitations: per Instructions/Follow-up section . Instructions / Follow-Up Instructions / Follow-Up Please continue all medications as instructed. You will continue CEFDINIR until 08/09 with the last dose on 08/09. You will continue KEPPRA at 500mg twice daily. You will need a KEPPRA LEVEL drawn in ten days (on or after 08/19/17). This level should be reported to Dr. Farzana Casarez at [facility] Neurology. Please followup with this Neurology group as instructed or within 4 weeks of discharge. It is recommended to follow-up with your Primary Care Provider one week after discharge from the rehab facility. It was a pleasure taking care of you! Call if you have any questions or problems. You can reach a [facility] hospitalist on duty at [facility] 24 hours a day by calling [phone]. Take care of yourself. Blanca King DO [facility] Hospitalist Current Hospital Diet Patient's current hospital diet: Regular Diet Discharge Diet Recommended Diet: Regular Diet Diet Texture: Pureed (blended smooth) (Moist; all soups ok, waffles/pancakes/ soft desserts ok) Procedures Procedures Performed: None. Pending Studies Studies pending at discharge: no Medical Emergencies . Who to Call and When: Medical Emergencies: If at any time you feel your situation is an emergency, please call 911 immediately. . Non-Emergent Contact Non-Emergency issues call your: Primary Care Provider . . "Provider Documentation" section prepared by Blanca King. . VTE Core Measure Inpt VTE Proph given/why not?: Enoxaparin (Lovenox)SQ, SCD's Additional Copies To Junior Cantu III, M.D.
== END 2017-08-07 14:41 | DRG 100 ==
LOC: EDBD 00:43 → C.EDB 00:46 → C.MED 02:23 → EDBEDREQ 02:28 → ENRESERV 02:35 → C.4E 08-06 13:39 → ENRESERV 08-06 14:05
PROVIDERS: ADMIT Hospitalist; ATTEND Hospitalist
DX: R56.9 Unspecified convulsions (principal); G93.40 Encephalopathy, unspecified; N39.0 Urinary tract infection, site not specified; R41.82 Altered mental status, unspecified; F03.90 Unspecified dementia, unspecified severity, without behavioral disturbance, psychotic disturbance, mood disturbance, and anxiety; E78.5 Hyperlipidemia, unspecified; I10 Essential (primary) hypertension; Z79.82 Long term (current) use of aspirin

== ENCOUNTER → 2017-09-30 | Outpatient (CLI) | payer OTHER ==
[~2017-09-30] MED LIST changes: +ACET-1311 PO; -ACET-1346 PO; +ASPI-435 PO; +ATOR-22 PO; -BISA10SU38 PR; +CEFD300C3 PO; +CITA10TA8 PO; +CITA20TA9 PO; +IBUP-103 PO; +LEVE500T13 PO; -LEVE750T PO; -LPR25 PO; -LPT20 PO; -MAGNSUS73 PO; +MULT-610 PO; -NOTE:; +POLY335019 PO; -SULF800T23 PO
== END ==
LOC: C.LABCC 11:45
PROVIDERS: ATTEND Internal Medicine
DX: R41.82 Altered mental status, unspecified (principal)

== ENCOUNTER 2019-12-05 12:42 | Inpatient (IN) ==
[2019-12-05] MEDS ORDERED: SODIUM CHLORIDE 0.9% 500 ML IV SCH (13:00)
--- NOTE | 2019-12-05 13:06 | Emergency Department Note ---
Impression & Plan Seizure, Dementia, Hypertension, Status post resection of meningioma ED Provider Note NAME: RAYNA KAMINSKI AGE: 89 SEX: F : 1930 ARRIVES VIA: Ambulance INFORMANT: Patient daughter, EMS ED PROVIDER(S): Varghese Yip DO CHIEF COMPLAINT: Altered mental status HPI: Patient is an 89-year-old female with a past medical history of dementia, meningioma, seizure not taking Keppra the presents the ER for altered mental status. Daughter went into the room and found her mother gurgling which lasted for about 20 to 25 minutes. She is completely unresponsive. EMS arrived and she was confused but slightly awake. She was brought into the ER. She has a past medical history of meningioma resection in combination with encephalomalacia and dementia. Patient denies any change in vision, chest pain, shortness of breath, nausea, vomiting or diarrhea. History is obtained through interpretation with the daughter as the video and call language line are both not working. Daughter notes that she is still confused. History is limited secondary to mentation ROS: See above HPI for pertinent positives & negatives but limited secondary to mentation PAST MEDICAL HISTORY:See Below PAST SURGICAL HISTORY:See Below FAMILY HISTORY:See Below SOCIAL HISTORY:See Below HOME MEDICATIONS:See Below ALLERGIES:See Below VITALS:See Below PHYSICAL EXAMINATION: GENERAL: Sitting up in bed, alert, chronically ill-appearing, no acute distress EYE EXAM: normal conjunctiva. PERRL and EOM's grossly intact. OROPHARYNX: no exudate, no erythema, lips, buccal mucosa, and tongue normal and mucous membranes are moist NECK: supple, no nuchal rigidity, no adenopathy, non-tender LUNGS: Clear to auscultation. Normal chest wall mechanics HEART: no murmurs, S1 normal and S2 normal ABDOMEN: abdomen soft, non-tender, normo-active bowel sounds, no masses, no rebound or guarding. BACK: Back is symmetrical on inspection and there is no deformity, no midline tenderness, no CVA tenderness. SKIN: no rashes and no bruising UPPER EXTREMITIES: upper extremities are grossly normal. LOWER EXTREMITIES: No pitting edema. NEURO EXAM: Awake and answering intermittent answering questions in Togolese but confused, cranial nerves II-XII grossly intact, normal speech, no weakness of arms, no weakness of legs. Unable to perform [id number] and drift. MEDICAL DECISION MAKING: Patient is an 89-year-old female who presents the ER for period of unresponsiven ess. Daughter heard her gurgling and went into the room and she had mild body shaking and was altered. She eventually came to per EMS and woke up. She is Togolese speaking and was difficult to converse with until daughter arrived. Unable to get videoing manufacturing engineer chief or audio manufacturing engineer chief. IV was established blood work is obtained shows no significant leukocytosis or anemia. BMP along with LFTs bilirubin and troponin was negative. UA was unremarkable. Chest x- ray and CT head showed no new acute pathology. EKG was unremarkable. She does have a seizure disorder and has not take her Keppra. She was bolused with Keppra. As she has not returned to her baseline discussed with the hospitalist in regards to observation. Did attempt on 2 separate occasions to use video bilingual speech language pathologist as well as audio bilingual speech language pathologist neither of which were working. Triage Nursing notes reviewed. Prior medical records reviewed Vital Signs: reviewed and remarkable for hypertension Differential diagnosis: Differential diagnoses includes but is not limited to toxic, metabolic, infectious, traumatic, cardiac, neurologic, hematologic, psychiatric and inflammatory etiologies. ER treatment provided: See below Diagnostics interpreted by me: ECG: Sinus rhythm rate of 63 Left axis No PVCs T WI V1 through V2 Normal QTC Cardiac Monitoring: An order was placed for continuous cardiac monitoring. The monitor shows a rate of 63 and a sinus rhythm. Laboratory studies: As stated above and show below. Imaging studies: CT head shows no new acute pathology. Portable AP upright 1 view of the chest shows no focal infiltrate or pneumothorax. Consultation(s): Dr. Arroyo ED COURSE: Procedures: none Critical Care: None Past Med/Surg History Medical History (Updated 12/05/19 @ 17:51 by Varghese Yip DO) Seizure (Acute) Family History Unknown Family history non-contributory Social History Communication Tools: IPad Feels Safe at Home: Yes Smoking Status: Never smoker Hx Alcohol Use: No Allergies Allergies Allergy/AdvReac Type Severity Reaction Status Date / Time haloperidol AdvReac Unknown Confusion. Verified 12/05/19 13:34 lorazepam AdvReac Unknown Confusion. Verified 12/05/19 13:34 Home Meds Home Medications Medication Instructions Recorded Confirmed atenolol [Tenormin] 50 mg PO DAILY #0 tab 02/04/14 12/05/19 aspirin [Aspirin Low Dose] 81 mg PO DAILY #0 08/02/17 12/05/19 atorvastatin [Lipitor] 20 mg PO DAILY #0 tab 08/02/17 12/05/19 citalopram [Celexa] 20 mg PO DAILY #0 tab 08/02/17 12/05/19 Results & Data (ED) Vital Signs Vital Signs - 24 hr 12/05/19 13:06 12/05/19 13:44 12/05/19 15:31 Temperature 36.7 C Temperature Source Axillary Pulse Rate 64 Pulse Rate [Finger] 64 61 63 Pulse Rhythm [Finger] Regular Regular Pulse Strength [Finger] Normal Normal Respiratory Rate 21 16 18 Respiratory Effort / Characteristics Non-Labored Spontaneous Non-Labored Spontaneous Respiratory Depth Normal Normal Blood Pressure 128/103 H Blood Pressure [Right Arm] 128/103 H 183/77 H 183/77 H Blood Pressure Mean 111 Blood Pressure Mean [Right Arm] 111 112 112 Blood Pressure Position [Right Arm] Sitting Sitting Pulse Oximetry 94 95 Oxygen Delivery Method Room Air Room Air Sepsis Recent Fever Within 48 Hours No Sepsis New/Unexplained Change in Mental Status No Sepsis Action Taken by Nursing No Action Required Laboratory Data Result diagrams: 12/05/19 13:04 12/05/19 13:04 Lab Results 12/05/19 12/05/19 12/05/19 Range/Units 13:04 13:04 13:35 WBC 4.85 (4.8-10.8) K/uL RBC 4.55 (4.2-5.4) M/uL Hgb 13.3 (12.0-16.0) g/dL Hct 39.6 (37-47) % MCV 87.0 (80-100) fL MCH 29.2 (25-34) pg MCHC 33.6 (32-36) g/dL RDW Std Deviation 46.6 H (36.4-46.3) fL RDW Coeff of Tom 14.7 H (11.5-14.5) % Plt Count 177 (130-400) K/uL MPV 10.6 H (7.4-10.4) fL Immature Gran % (Auto) 0.2 % Neut % (Auto) 61.9 % Lymph % (Auto) 27.2 % [place] % (Auto) 8.0 % Eos % (Auto) 2.3 % Baso % (Auto) 0.4 % Immature Gran # (Auto) 0.01 (0.00-0.02) K/uL Neut # (Auto) 3.00 (1.4-6.5) K/uL Lymph # (Auto) 1.32 (1.2-3.4) K/uL [place] # (Auto) 0.39 (0.11-0.59) K/uL Eos # (Auto) 0.11 (0-0.5) K/uL Baso # (Auto) 0.02 (0-0.2) K/uL Sodium 142 (136-145) mmol/L Potassium 3.7 (3.5-5.1) mmol/L Chloride 108 H (98-107) mmol/L Carbon Dioxide 28 (21-32) mmol/L Anion Gap 6.0 (3-11) BUN 15 (7-18) mg/dl Creatinine 0.85 (0.6-1.2) mg/dl Est Cr Clr Drug Dosing 46.1 ml/min Est GFR ( Amer) 70.9 Est GFR (Non-Af Amer) 61.2 BUN/Creatinine Ratio 18.1 (10-20) Glucose 87 (70-99) mg/dl Calcium 9.4 (8.5-10.1) mg/dl Magnesium 2.0 (1.8-2.4) mg/dl Total Bilirubin 0.2 (0.2-1) mg/dl AST 17 (15-37) U/L ALT 27 (12-78) U/L Alkaline Phosphatase 108 (45-117) U/L Total Creatine Kinase 67 (26-192) U/L Troponin I < 0.015 (0-0.045) ng/ml Total Protein 7.5 (6.4-8.2) gm/dl Albumin 3.6 (3.4-5.0) gm/dl Globulin 3.9 (2.5-4.0) gm/dl Albumin/Globulin Ratio 0.9 (0.9-2) Procalcitonin (0-0.5) ng/ml Specimen Hemolysis Urine Color Yellow Urine Appearance Clear (Clear) Urine pH 7.5 (4.5-7.5) Ur Specific [place] 1.015 (1.000-1.030) Urine Protein Negative (Negative) Urine Glucose (UA) Negative (Negative) Urine Ketones Negative (Negative) Urine Blood Negative (Negative) Urine Nitrite Negative (Negative) Urine Bilirubin Negative (Negative) Urine Urobilinogen Negative (Negative) Ur Leukocyte Esterase Negative (Negative) 12/05/19 Range/Units 15:23 WBC (4.8-10.8) K/uL RBC (4.2-5.4) M/uL Hgb (12.0-16.0) g/dL Hct (37-47) % MCV (80-100) fL MCH (25-34) pg MCHC (32-36) g/dL RDW Std Deviation (36.4-46.3) fL RDW Coeff of Tom (11.5-14.5) % Plt Count (130-400) K/uL MPV (7.4-10.4) fL Immature Gran % (Auto) % Neut % (Auto) % Lymph % (Auto) % [place] % (Auto) % Eos % (Auto) % Baso % (Auto) % Immature Gran # (Auto) (0.00-0.02) K/uL Neut # (Auto) (1.4-6.5) K/uL Lymph # (Auto) (1.2-3.4) K/uL [place] # (Auto) (0.11-0.59) K/uL Eos # (Auto) (0-0.5) K/uL Baso # (Auto) (0-0.2) K/uL Sodium (136-145) mmol/L Potassium (3.5-5.1) mmol/L Chloride (98-107) mmol/L Carbon Dioxide (21-32) mmol/L Anion Gap (3-11) BUN (7-18) mg/dl Creatinine (0.6-1.2) mg/dl Est Cr Clr Drug Dosing ml/min Est GFR ( Amer) Est GFR (Non-Af Amer) BUN/Creatinine Ratio (10-20) Glucose (70-99) mg/dl Calcium (8.5-10.1) mg/dl Magnesium (1.8-2.4) mg/dl Total Bilirubin (0.2-1) mg/dl AST (15-37) U/L ALT (12-78) U/L Alkaline Phosphatase (45-117) U/L Total Creatine Kinase (26-192) U/L Troponin I (0-0.045) ng/ml Total Protein (6.4-8.2) gm/dl Albumin (3.4-5.0) gm/dl Globulin (2.5-4.0) gm/dl Albumin/Globulin Ratio (0.9-2) Procalcitonin < 0.05 (0-0.5) ng/ml Specimen Hemolysis Urine Color Urine Appearance (Clear) Urine pH (4.5-7.5) Ur Specific [place] (1.000-1.030) Urine Protein (Negative) Urine Glucose (UA) (Negative) Urine Ketones (Negative) Urine Blood (Negative) Urine Nitrite (Negative) Urine Bilirubin (Negative) Urine Urobilinogen (Negative) Ur Leukocyte Esterase (Negative) Administered Medications Potassium Chloride/Sodium Chloride (Normal Saline W/20 Meq Kcl) 20 meq in 1,000 mls @ 75 mls/hr IV .[id number] ONE Stop: 12/06/19 06:19 Last Admin: 12/05/19 17:19 Dose: 75 mls/hr Documented by: [id number] Discontinued Medications Amlodipine Besylate (Norvasc) 5 mg PO NOW ONE Stop: 12/05/19 17:01 Last Admin: 12/05/19 17:19 Dose: 5 mg Documented by: [id number] Sodium Chloride (Nss) 500 mls @ 999 mls/hr IV .[id number] IRAIS Stop: 12/05/19 13:30 Last Infusion: 12/05/19 15:00 Dose: 0 mls/hr Documented by: [id number] Admin: 12/05/19 14:30 Dose: 999 mls/hr Documented by: [id number] Levetiracetam 1,000 mg/ Sodium (Chloride) 110 mls @ 440 mls/hr IV NOW STA Stop: 12/05/19 14:32 Last Infusion: 12/05/19 15:40 Dose: 0 mls/hr Documented by: [id number] Admin: 12/05/19 15:20 Dose: 440 mls/hr Documented by: [id number] Discharge Plan Visit Data *Final* Discharge Date/Time: 12/05/19 16:31 Chief Complaint: Seizure Stated Complaint: seizure ED Provider: Varghese Yip Discharge Problem: Seizure, Dementia, Hypertension, Status post resection of meningioma Patient Disposition: Admitted As Inpatient Discharge Instructions Interventions: ED Discharge Assessment Last Done: 12/05/19 16:31 Discharge Problem: Dementia Qualifiers: Dementia type: unspecified type Dementia behavioral disturbance: without behavioral disturbance Qualified Code(s): F03.90 - Unspecified dementia without behavioral disturbance Hypertension Qualifiers: Hypertension type: unspecified Qualified Code(s): I10 - Essential (primary) hypertension
[2019-12-05 13:24] LABS: Basophils # (auto) 0.02 K/uL (0-0.2); Basophils % (auto) 0.4 %; Eosinophils # (auto) 0.11 K/uL (0-0.5); Eosinophils % (auto) 2.3 %; Hematocrit (blood only) 39.6 % (37-47); Hemoglobin 13.3 g/dL (12.0-16.0); Immature Granulocytes # (auto) 0.01 K/uL (0.00-0.02); Immature Granulocytes % (auto) 0.2 %; Lymphocytes # (auto) 1.32 K/uL (1.2-3.4); Lymphocytes % (auto) 27.2 %; Mean Corpuscular Hemoglobin 29.2 pg (25-34); Mean Corpuscular Hgb Conc 33.6 g/dL (32-36); Mean Platelet Volume 10.6 fL (7.4-10.4); Monocytes # (auto) 0.39 K/uL (0.11-0.59); Neutrophils % (auto) 61.9 %; Platelet Count 177 K/uL (130-400); RDW Coefficient of Variation 14.7 % (11.5-14.5); RDW Standard Deviation 46.6 fL (36.4-46.3); Red Blood Count 4.55 M/uL (4.2-5.4); White Blood Count 4.85 K/uL (4.8-10.8)
--- NOTE | 2019-12-05 13:29 | XRay Report ---
XR chest 1V portable CLINICAL HISTORY: Altered mental status. COMPARISON STUDY: Chest radiograph August 02, 2017. FINDINGS: Lung volumes are normal. There is no pneumothorax or pleural effusion. Note is made of mode rate cardiomegaly without evidence for pulmonary edema. Mild right basilar opacity is present. IMPRESSION: 1. Mild right basilar opacity which may reflect pneumonia or atelectasis. Radiographic follow up is r ecommended. 2. Cardiomegaly without evidence for pulmonary edema. ACT 112: Negative or not required by law. Electronically signed by: Kalin Agee M.D. 12/05/2019 1:27 PM
[2019-12-05 13:37] LABS: Alanine Aminotransferase 27 U/L (12-78); Albumin Level 3.6 gm/dl (3.4-5.0); Aspartate Aminotransferase 17 U/L (15-37); BUN Creatinine Ratio 18.1 (10-20); Blood Urea Nitrogen 15 mg/dl (7-18); Calcium 9.4 mg/dl (8.5-10.1); Carbon Dioxide 28 mmol/L (21-32); Chloride 108 mmol/L (98-107); Creatinine Clr Calc Pharmacy 46.1 ml/min; Est GFR (African American) 70.9; Est GFR (Non-African American) 61.2; Glucose 87 mg/dl (70-99); Potassium 3.7 mmol/L (3.5-5.1); Sodium 142 mmol/L (136-145)
[2019-12-05 13:38] LABS: Albumin Globulin Ratio 0.9 (0.9-2); Alkaline Phosphatase 108 U/L (45-117); Bilirubin,Total 0.2 mg/dl (0.2-1); Creatine Kinase 67 U/L (26-192); Globulin 3.9 gm/dl (2.5-4.0); Total Protein 7.5 gm/dl (6.4-8.2); Troponin I < 0.015 ng/ml (0-0.045)
[2019-12-05 13:51] LABS: Appearance Urine Clear (Clear); Bilirubin Urine Negative (Negative); Blood Urine Negative (Negative); Color Urine Yellow; Glucose Urine UA Negative (Negative); Ketones Urine Negative (Negative); Leukocyte Esterase Urine Negative (Negative); Nitrite Urine Negative (Negative); Protein Urine Negative (Negative); Specific Gravity Urine 1.015 (1.000-1.030); Urobilinogen Urine Negative (Negative); pH Urine 7.5 (4.5-7.5)
--- NOTE | 2019-12-05 14:11 | CT Scan Report ---
CT OF THE HEAD WITHOUT CONTRAST CLINICAL HISTORY: seizure COMPARISON STUDY: Head CT August 02, 2017. CT DOSE: 537.48 mGy.cm TECHNIQUE: Helical axial images of the head were obtained without IV contrast. Automated exposure con trol was utilized for the study. A dose lowering technique was utilized adhering to the principles o f ALARA. FINDINGS: No acute intracranial hemorrhage is present. Note is again made of a right-sided craniotomy with postoperative findings consistent with resection of a right sphenoid wing meningioma. Postopera tive appearance is unchanged since exam of August 02, 2017. Note is made of a 1.7 cm nodular densit y overlying the posterior aspect of the cribriform plate. This is similar to earlier exams. Dilatatio n of the right lateral ventricle is unchanged. The ventricular system is stable. Basilar cisterns are patent. Right temporal and frontal lobe encephalomalacia is unchanged. There are no findings to sugg est acute dural sinus thrombosis or acute territorial infarct. There is no calvarial fracture. White matter hypodensity suggests small vessel disease. IMPRESSION: No acute intracranial findings. No change in appearance of the brain with stable postoperative findin gs status post right sided craniotomy and resection of the right sphenoid wing meningioma. 1.7 cm nod ular density overlying the posterior aspect of the cribriform plate which may reflect residual/recurr ent meningioma. ACT 112: Negative or not required by law. Electronically signed by: Kalin Agee M.D. 12/05/2019 2:10 PM
[2019-12-05] MEDS ORDERED: levETIRAcetam 1,000 MG in 0.9 % SODIUM CHLORIDE 100 ML IV STA (14:18)
--- NOTE | 2019-12-05 14:30 | History & Physical Report ---
Date of Service December 05, 2019 Assessment & Plan (1) Seizure: Breakthrough seizure H/O seizure in the past Likely precipitated due to poor sleep and medication Non compliance No history of fall/head trauma --CT head: No acute intracranial findings. No change in appearance of the brain with stable postoperative findings status post right sided craniotomy and resection of the right sphenoid wing meningioma. 1.7 cm nodular density overlying the posterior aspect of the cribriform plate which may reflect residual/recurrent meningioma. --Currently not on any antiseizure medications --Received 1 g IV Keppra in ED. --start on IV Keppra 500 mg BID --Obtain EEG --Neurology consulted --Fall/seizure/aspiration precautions --Ativan PRN seizure --Neuro checks --PT/OT eval prior to discharge Right basilar opacity likely atelectasis CXR:Mild right basilar opacity which may reflect pneumonia or atelectasis. Radiographic follow up is recommended. Cardiomegaly without evidence for pulmonary edema. 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 (3) Dementia: Oriented to person at baseline Reorient frequently to avoid delirium (4) Dyslipidemia: Continue Lipitor (5) Hypertension: BP elevated while in ED: Likely situational Not on any antihypertensives at home Start amlodipine 5mg Monitor BP Ambulatory Dysfunction Uses walker to ambulate at baseline Drags her left leg as per family PT/OT DVT Px: Heparin SQ Code Status Full Code as per my discussion with patient's daughter-POA Disposition PT/OT prior to discharge Case management consulted for discharge planning History of Present Illness Chief Complaint: Seizure Primary Care Provider: Junior Cantu MD Patient is an 89-year-old female with history of large right temporal lobe meningioma S/P resection with history of significant encephalomalacia and vascular changes, H/O seizure, multifocal dementia, dyslipidemia, hypertension, ambulatory dysfunction, depression and other problems presents with history of seizure-like episode. Patient cannot speak Frisian and is in postictal state and so most of the information is obtained from patient's daughter, medical records and ER staff. Patient was noted to be " not herself" this morning and was moving slowly as per the daughter. Patient had breakfast and took her medications this morning and complained of poor sleep overnight.. She reported headache and her daughter recommended her to have a nap. Patient's daughter noted " gurgling noise" and when checked, patient had lot of foaming from her mouth and was unresponsive for about 20 to 25 minutes. Patient's daughter called 911 and brought her to ED for further evaluation. Patient has not been taking her Keppra since about 1-1/2 years. Currently she is not on any antiseizure medications. Patient was noted to be confused while in ED which was slowly resolving. No known history of chest pain, SOB, dizziness, cough, wheezing, fever, chills, fall, head trauma, new weakness, numbness, change in vision, slurred speech, facial deformity, bowel/bladder incontinence, nausea, vomiting, abdominal pain, diarrhea, dysuria, recent travel, sick contact, recent change in medications. Allergies Allergy/AdvReac Type Severity Reaction Status Date / Time haloperidol AdvReac Unknown Confusion. Verified 12/05/19 13:34 lorazepam AdvReac Unknown Confusion. Verified 12/05/19 13:34 Home Medications Home Medications Medication Instructions Recorded Confirmed Type atenolol [Tenormin] 50 mg PO DAILY #0 tab 02/04/14 12/05/19 History aspirin [Aspirin Low Dose] 81 mg PO DAILY #0 08/02/17 12/05/19 History atorvastatin [Lipitor] 20 mg PO DAILY #0 tab 08/02/17 12/05/19 History citalopram [Celexa] 20 mg PO DAILY #0 tab 08/02/17 12/05/19 History Past Med/Surg History Family History Unknown Family history non-contributory Social History Communication Tools: IPad Feels Safe at Home: Yes Smoking Status: Never smoker Hx Alcohol Use: No Review of Systems Review of Systems: Unobtainable due to reduced consciousness Physical Exam Physical Exam: Physical Exam: Vitals signs as noted above General Appearance:Moderately built and nourished, no apparent distress Head: normocephalic, Atraumatic Eyes: normal inspection, EOMI,PERRLA, Left eye ptosis Neck: supple, Trachea midline Respiratory/Chest: Normal breath sounds, CTA, No accessory muscle use Cardiovascular: S1, S2, No murmur Abdomen/GI:Soft, Non tender, Bowel sounds present Extremities/Musculoskelatal:normal inspection, no edema Neurologic/Psych:Alert, awake, oriented to self, grossly no focal neurological deficits Skin: normal color, warm Results & Data Results & Data ([facility]) Vital Signs (Past 12 Hours) Vital Signs Temp Pulse Pulse Resp BP BP Pulse Ox 12/05/19 13:44 61 16 183/77 H 95 12/05/19 13:06 36.7 C 64 64 21 128/103 H 128/103 H 94 Laboratory Results Short CBC 12/05/19 Range/Units 13:04 WBC 4.85 (4.8-10.8) K/uL Hgb 13.3 (12.0-16.0) g/dL Hct 39.6 (37-47) % Plt Count 177 (130-400) K/uL BMP 12/05/19 13:04 Sodium 142 Potassium 3.7 Chloride 108 H Carbon Dioxide 28 BUN 15 Creatinine 0.85 Glucose 87 Calcium 9.4 Cardiac Enzymes 12/05/19 Range/Units 13:04 Total Creatine Kinase 67 (26-192) U/L Troponin I < 0.015 (0-0.045) ng/ml Liver Function 12/05/19 Range/Units 13:04 Total Bilirubin 0.2 (0.2-1) mg/dl AST 17 (15-37) U/L ALT 27 (12-78) U/L Alkaline Phosphatase 108 (45-117) U/L Albumin 3.6 (3.4-5.0) gm/dl Urine 12/05/19 Range/Units 13:35 Urine Color Yellow Urine Appearance Clear (Clear) Urine pH 7.5 (4.5-7.5) Ur Specific [place] 1.015 (1.000-1.030) Urine Protein Negative (Negative) Urine Glucose (UA) Negative (Negative) Diagnostic Findings CT head: No acute intracranial findings. No change in appearance of the brain with stable postoperative findings status post right sided craniotomy and resection of the right sphenoid wing meningioma. 1.7 cm nodular density overlying the posterior aspect of the cribriform plate which may reflect residual/recurrent meningioma. CXR: 1. Mild right basilar opacity which may reflect pneumonia or atelectasis. Radiographic follow up is recommended. 2. Cardiomegaly without evidence for pulmonary edema. ECG Additional Comments: EKG: Sinus rhythm with first-degree AV block, QTC 446.
[2019-12-05] MEDS ORDERED: ACETAMINOPHEN 325 MG TAB PO PRN (16:51)
[2019-12-05] MEDS ORDERED: POLYETHYLENE (MIRALAX) 17 GM PACK PO PRN (16:51)
[2019-12-05] MEDS ORDERED: ONDANSETRON INJ 2 MG/ML 2 ML VIAL IV PRN (16:51)
[2019-12-05] MEDS ORDERED: LORazepam 1 MG/2 ML VIAL IV PRN (16:51)
[2019-12-05] MEDS ORDERED: AMLODIPINE BESYLATE 5 MG TAB PO ONE (17:00)
[2019-12-05] MEDS ORDERED: NSS + 20MEQ KCL 20 MEQ/1,000 ML BAG IV ONE (17:00)
[2019-12-05] MEDS: levETIRAcetam 500 MG TAB PO SCH (21:48)
[2019-12-05] MEDS: HEPARIN SOD 5,000 UNIT/0.5 ML VIAL SQ SCH (21:52)
[2019-12-06] MEDS: AMLODIPINE BESYLATE 5 MG TAB PO SCH (01:09)
[2019-12-06 06:38] LABS: Hematocrit (blood only) 38.6 % (37-47); Hemoglobin 12.9 g/dL (12.0-16.0); Mean Corpuscular Hemoglobin 28.6 pg (25-34); Mean Corpuscular Hgb Conc 33.4 g/dL (32-36); Mean Corpuscular Volume 85.6 fL (80-100); Mean Platelet Volume 10.2 fL (7.4-10.4); Platelet Count 167 K/uL (130-400); RDW Coefficient of Variation 14.5 % (11.5-14.5); RDW Standard Deviation 45.4 fL (36.4-46.3); Red Blood Count 4.51 M/uL (4.2-5.4); White Blood Count 5.19 K/uL (4.8-10.8)
[2019-12-06 07:12] LABS: BUN Creatinine Ratio 11.6 (10-20); Calcium 8.5 mg/dl (8.5-10.1); Creatinine Clr Calc Pharmacy 47.3 ml/min; Est GFR (African American) 90.5; Est GFR (Non-African American) 78.1; Magnesium 1.9 mg/dl (1.8-2.4); Potassium 3.3 mmol/L (3.5-5.1)
[2019-12-06] MEDS ORDERED: POTASSIUM CHLORIDE 20 MEQ/15 ML UDC PO STA (08:15)
[2019-12-06] MEDS ORDERED: ATENOLOL 25 MG TABLET PO SCH (09:00)
[2019-12-06] MEDS ORDERED: AMLODIPINE BESYLATE 5 MG TAB PO SCH (09:00)
[2019-12-06] MEDS ORDERED: ATENOLOL 50 MG TABLET PO SCH (09:00)
[2019-12-06] MEDS: levETIRAcetam 500 MG TAB PO SCH ×2 (09:22→23:02)
[2019-12-06] MEDS: HEPARIN SOD 5,000 UNIT/0.5 ML VIAL SQ SCH ×2 (09:22→22:31)
[2019-12-06] MEDS: ASPIRIN 81 MG ECTAB PO SCH (09:22)
[2019-12-06] MEDS: ATORVASTATIN 20 MG TAB PO SCH (09:22)
[2019-12-06] MEDS: CITALOPRAM 20 MG TAB PO SCH (09:22)
--- NOTE | 2019-12-06 10:27 | Electrocardiogram Report ---
Test Reason : Blood Pressure : / mmHG Vent. Rate : 063 BPM Atrial Rate : 063 BPM P-R Int : 226 ms QRS Dur : 090 ms QT Int : 436 ms P-R-T Axes : 069 -23 067 degrees QTc Int : 446 ms Sinus rhythm with 1st degree A-V block Poor R wave progression, consider anterior [place] vs. lead placement vs. LVH Abnormal ECG When compared with ECG of 04-AUG-2017 07:25, CA interval has increased Nonspecific T wave abnormality no longer evident in Inferior leads Confirmed by Atul Dubose ([id number]) on 12/06/2019 10:26:33 AM Referred By: REFERRED SELF Confirmed By:Atul Dubose
--- NOTE | 2019-12-06 12:11 | Hospitalist Progress Note ---
Date of Service December 06, 2019 Assessment & Plan (1) Seizure: Breakthrough seizure H/O seizure in the past Likely precipitated due to poor sleep and medication Non compliance No history of fall/head trauma --CT head: No acute intracranial findings. No change in appearance of the brain with stable postoperative findings status post right sided craniotomy and resection of the right sphenoid wing meningioma. 1.7 cm nodular density overlying the posterior aspect of the cribriform plate which may reflect residual/recurrent meningioma. --Currently not on any antiseizure medications --Received 1 g IV Keppra in ED. --Continue Keppra 500 mg BID --EEG--Results pending --Appreciate Neurology Input --Continue Fall/seizure/aspiration precautions --Ativan PRN seizure --Neuro checks --Continue PT/OT Right basilar opacity likely atelectasis CXR:Mild right basilar opacity which may reflect pneumonia or atelectasis. Radiographic follow up is recommended. Cardiomegaly without evidence for pulmonary edema. 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 (3) Dementia: Oriented to person at baseline Reorient frequently to avoid delirium (4) Dyslipidemia: Continue Lipitor (5) Hypertension: BP elevated while in ED: Likely situational Not on any antihypertensives at home Continue amlodipine 5mg BP variable Sinus Bradycardia Decrease dose Atenolol to 25mg Adjust dose as needed Ambulatory Dysfunction Uses walker to ambulate at baseline Drags her left leg as per family PT/OT DVT Px: Heparin SQ Code Status Full Code as per my discussion with patient's daughter-POA Disposition PT/OT prior to discharge Case management consulted for discharge planning Admission and Anticipated Discharge Date Admission Date: December 05, 2019 Subjective Patient is seen and examined at bedside Lying in bed, having breakfast this morning No seizure activity since hospitalization History difficult to obtain secondary to dementia, language barrier Discussed with patient's daughter and neurology today Did well with PT this morning as 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 [place] of Systems Review of Systems: Other Difficult to obtain due to language barrier, dementia Physical Exam Physical Exam: Physical Exam: Vitals signs as noted above General Appearance:Moderately built and nourished, no apparent distress Head: normocephalic, Atraumatic Eyes: normal inspection, EOMI,PERRLA, Left eye ptosis Neck: supple, Trachea midline Respiratory/Chest: Normal breath sounds, CTA, No accessory muscle use Cardiovascular: S1, S2, No murmur Abdomen/GI:Soft, Non tender, Bowel sounds present Extremities/Musculoskelatal:normal inspection, no edema Neurologic/Psych:Alert, awake, oriented to self, grossly no focal neurological deficits Skin: normal color, warm Results & Data Results & Data ([facility]) Vital Signs (Past 12 Hours) Vital Signs Temp Pulse Pulse Resp BP BP Pulse Ox 12/06/19 11:23 36.8 C 56 L 18 127/70 96 12/06/19 09:19 36.8 C 53 L 18 158/72 H 12/06/19 08:00 53 L 12/06/19 03:45 36.6 C 54 L 19 173/86 H 94 Laboratory Results Short CBC 12/05/19 12/06/19 Range/Units 13:04 06:15 WBC 4.85 5.19 (4.8-10.8) K/uL Hgb 13.3 12.9 (12.0-16.0) g/dL Hct 39.6 38.6 (37-47) % Plt Count 177 167 (130-400) K/uL BMP 12/05/19 12/06/19 13:04 06:15 Sodium 142 144 Potassium 3.7 3.3 L Chloride 108 H 112 H Carbon Dioxide 28 28 BUN 15 8 D Creatinine 0.85 0.68 Glucose 87 85 Calcium 9.4 8.5 Cardiac Enzymes 12/05/19 Range/Units 13:04 Total Creatine Kinase 67 (26-192) U/L Troponin I < 0.015 (0-0.045) ng/ml Liver Function 12/05/19 Range/Units 13:04 Total Bilirubin 0.2 (0.2-1) mg/dl AST 17 (15-37) U/L ALT 27 (12-78) U/L Alkaline Phosphatase 108 (45-117) U/L Albumin 3.6 (3.4-5.0) gm/dl Urine 12/05/19 Range/Units 13:35 Urine Color Yellow Urine Appearance Clear (Clear) Urine pH 7.5 (4.5-7.5) Ur Specific [place] 1.015 (1.000-1.030) Urine Protein Negative (Negative) Urine Glucose (UA) Negative (Negative) (1) Dementia Dementia behavioral disturbance: without behavioral disturbance Dementia type: unspecified type Qualified Code(s): F03.90 - Unspecified dementia without behavioral disturbance (2) Hypertension Hypertension type: unspecified Qualified Code(s): I10 - Essential (primary) hypertension
--- NOTE | 2019-12-06 13:50 | Consultation Report ---
DATE OF CONSULTATION: 12/06/2019 REASON FOR CONSULTATION: Seizure. HISTORY OF PRESENT ILLNESS: The patient is an 89-year-old presumed right-handed female. She has a history of a large right temporal meningioma, status post resection with significant encephalomalacia and chronic vascular changes, history of seizure secondary to the same and multifactorial dementia, dyslipidemia, hypertension and ambulatory dysfunction. The patient had chronically been on Keppra, but was refusing medications and at some point discontinued anticonvulsants as she had not had any seizures. The evening prior to admission, the patient had poor sleep and in the morning, she was not herself and was moving slowly. She had her breakfast and took her morning medications. She reported a mild headache and her daughter recommended to take a nap. Daughter noted gurgling noise and when she checked, the patient had "foaming from her mouth" and was unresponsive for about 20-25 minutes, 911 was called and she was brought to the Emergency Room. The history which is otherwise obtained from the chart and discussion with Dr. Arroyo noted that in communication with her daughter, she had not had any chest pain, shortness of breath, dizziness, cough, wheezing, fevers, chills, fall, head trauma, new weakness, numbness, change in vision, slurred speech, facial deformity, bowel or bladder incontinence, vomiting, abdominal pain, diarrhea, dysuria or recent travel, sick contacts, or recent change in medicines. PAST MEDICAL HISTORY: As above. PAST SURGICAL HISTORY: Right temporal meningioma resection, partial. SOCIAL HISTORY: Nonsmoker, nondrinker. She is currently living with one of her daughters. ALLERGIES: HALDOL, LORAZEPAM, BOTH OF WHICH CAUSED CONFUSION. HOME MEDICATIONS: Aspirin, Tenormin, atorvastatin, and Celexa. FAMILY HISTORY: Noncontributory at this patient's age. LABORATORY DATA: White count, H and H and platelet count were normal. Sodium and potassium were normal. BUN/creatinine 15/0.85. Glucose 87, calcium 9.4. Transaminases normal. Urinalysis is negative. CT of the head, which I have reviewed shows no acute intracranial findings. No change in appearance of the brain with stable postop findings status post right-sided craniotomy and resection of the right sphenoid wing meningioma. A 1.7 cm nodular density over the posterior aspect of the cribriform plate, which may reflect residual or recurrent meningioma. PHYSICAL EXAMINATION: VITAL SIGNS: On admission, blood pressure was 128/103, subsequently [place] to as high as 181/89, currently blood pressure 127/70, O2 sat 96%. Pulse rate has ranged from 53-63. The patient is afebrile. GENERAL: The patient is a well-developed female, appearing younger than stated age. She is awake and alert. Her primary language is Serbian. While she does not essentially follow commands, she exchanges pleasantries. She may have a mild headache. She did not want me to take a blanket off as she was cold. She did not state her name. HEENT: Her head was normocephalic, atraumatic. I could not view her tongue due to noncooperation. NECK: Supple. NEUROLOGIC: Her pupils were equal. Any attempt to look into her eyes resulted in prompt blepharospasm. There is no fixed gaze preference. There is normal facial symmetry. Her speech was accented and not dysarthric. She would not cooperate with manual motor testing, but appeared to move all 4 extremities symmetrically. Reflexes were symmetric and toes were downgoing. She would not participate with [id number] and [id number] and the sensory examination would not have been possible with the language barrier. IMPRESSION AND PLAN: This patient has a history of very large right temporal meningioma, status post resection with a large area of right frontal encephalomalacia and fairly severe chronic vascular changes. She has secondary seizures. My understanding is she is thought to have a multifactorial dementia. This patient has not taken anticonvulsants for a period of time and certainly would be at fairly high risk for recurrent seizure given the degree of encephalomalacia. The patient was loaded with Keppra 1000 mg IV and then started on 500 mg b.i.d. I would recommend that if compliance is an issue that as an outpatient, we see if Keppra XR 1000 mg to be taken once a day would be covered; that would make it somewhat simpler for her family. Whether or not she is entirely back to her baseline is unclear. She certainly does not currently appear delirious. She ambulated 50 feet well with her walker in physical therapy. She should follow up with either Dr. Wakefield or Farzana Freeman, who has seen her previously. When they see her, they will likely check a Keppra level to make sure it is therapeutic. [facility]
--- NOTE | 2019-12-06 13:58 | Electroencephalogram ---
EEG Procedure Note Date of Service December 06, 2019 Start / End Times Start Time: 8:20am End Time: 8:40am Referring Physician Farzana Felipe History breakthrough seizure Home Medication List Home Medications Medication Instructions Recorded Confirmed Type atenolol [Tenormin] 50 mg PO DAILY #0 tab 02/04/14 12/05/19 History aspirin [Aspirin Low Dose] 81 mg PO DAILY #0 08/02/17 12/05/19 History atorvastatin [Lipitor] 20 mg PO DAILY #0 tab 08/02/17 12/05/19 History citalopram [Celexa] 20 mg PO DAILY #0 tab 08/02/17 12/05/19 History Inpatient Medication List Amlodipine Besylate (Norvasc) 5 mg PO QAM [facility] Stop: 01/05/20 00:44 Last Admin: 12/06/19 01:09 Dose: 5 mg Documented by: [id number] Aspirin (Ecotrin Ectab) 81 mg PO DAILY [facility] Stop: 01/05/20 08:59 Last Admin: 12/06/19 09:22 Dose: 81 mg Documented by: [id number] Atenolol (Tenormin) 25 mg PO DAILY [facility] Stop: 01/05/20 08:59 Last Admin: 12/06/19 09:21 Dose: Not Given Documented by: [id number] Atorvastatin Calcium (Lipitor) 20 mg PO DAILY [facility] Stop: 01/05/20 08:59 Last Admin: 12/06/19 09:22 Dose: 20 mg Documented by: [id number] Citalopram Hydrobromide (Celexa) 20 mg PO DAILY [facility] Stop: 01/05/20 08:59 Last Admin: 12/06/19 09:22 Dose: 20 mg Documented by: [id number] Heparin Sodium (Porcine) (Heparin Sodium (Porcine)) 5,000 units SQ Q12 [facility] Stop: 01/04/20 20:59 Last Admin: 12/06/19 09:22 Dose: 5,000 units Documented by: [id number] Cosigned by: [id number] Admin: 12/05/19 21:52 Dose: 5,000 units Documented by: [id number] Cosigned by: [id number] Levetiracetam (Keppra) 500 mg PO BID [facility] Stop: 01/04/20 20:59 Last Admin: 12/06/19 09:22 Dose: 500 mg Documented by: [id number] Admin: 12/05/19 21:48 Dose: 500 mg Documented by: [id number] Discontinued Medications Amlodipine Besylate (Norvasc) 5 mg PO NOW ONE Stop: 12/05/19 17:01 Last Admin: 12/05/19 17:19 Dose: 5 mg Documented by: [id number] Sodium Chloride (Nss) 500 mls @ 999 mls/hr IV .Q31M [facility] Stop: 12/05/19 13:30 Last Infusion: 12/05/19 15:00 Dose: 0 mls/hr Documented by: [id number] Admin: 12/05/19 14:30 Dose: 999 mls/hr Documented by: [id number] Levetiracetam 1,000 mg/ Sodium (Chloride) 110 mls @ 440 mls/hr IV NOW STA Stop: 12/05/19 14:32 Last Infusion: 12/05/19 15:40 Dose: 0 mls/hr Documented by: [id number] Admin: 12/05/19 15:20 Dose: 440 mls/hr Documented by: [id number] Potassium Chloride/Sodium Chloride (Normal Saline W/20 Meq Kcl) 20 meq in 1,000 mls @ 75 mls/hr IV .[id number] ONE Stop: 12/06/19 06:19 Last Infusion: 12/06/19 06:39 Dose: 0 mls/hr Documented by: [id number] Admin: 12/05/19 17:19 Dose: 75 mls/hr Documented by: [id number] Potassium Chloride (Radha Ciel Elix) 40 meq PO NOW STA Stop: 12/06/19 08:16 Last Admin: 12/06/19 09:22 Dose: 40 meq Documented by: [id number] Description This is a 21 electrode EEG with a single channel dedicated to limited EKG. The electrodes were placed in accordance with the International 10-20 system. History: 89 yo woman w/ PMH of large meningioma and possible breakthrough seizure Rx: keppra 500mg bid Start/Stop: 8:20am/8:40am Attending reading: Tonya Pelaez EEG Description: EEG background: Background was admixed 5-8 Hz symmetric theta and alpha rhythm. Frequent to near continuous focal slowing over the right frontotemporal lobe was noted. Right sided breach rhythm present. No well formed posterior dominant rhythm was observed. The EEG is continuous. There is variability and reactivity present. Activation and reactivity: Photic stimulation performed without any abnormalities noted. No photic driving observed. Hyperventilation was not performed. Sleep: Patient did not enter sleep or drowsiness during recording. Epileptiform discharges: No epileptiform discharges were observed. Rhythmic and periodic patterns: None Seizures: None Impression: This was an abnormal EEG given frequent to near continuous focal slowing over the right frontotemporal region consistent with known encephalomalacia in that region. Breach rhythm c/w prior right craniotomy. No seizures or epileptiform discharges were seen. [facility] EEG Procedure Codes Indication for Procedure (1) Seizure: (2) History of meningioma: (3) Dementia: Neurology Neurology: [id number] EEG include record awake & drowsy
[2019-12-06] MEDS: OLANZapine 10 MG/2.1 ML SDV IM PRN (20:28)
[2019-12-06] MEDS ORDERED: levETIRAcetam 500 MG in 0.9 % SODIUM CHLORIDE 100 ML IV STA (22:34)
[2019-12-07 07:39] LABS: Hemoglobin 13.2 g/dL (12.0-16.0); Mean Corpuscular Hemoglobin 28.5 pg (25-34); Mean Corpuscular Volume 86.4 fL (80-100); Mean Platelet Volume 10.2 fL (7.4-10.4); Platelet Count 182 K/uL (130-400); RDW Coefficient of Variation 14.8 % (11.5-14.5); RDW Standard Deviation 46.9 fL (36.4-46.3); Red Blood Count 4.63 M/uL (4.2-5.4)
[2019-12-07 08:12] LABS: Est GFR (African American) 78.7; Est GFR (Non-African American) 67.9; Potassium 3.4 mmol/L (3.5-5.1)
[2019-12-07 08:13] LABS: BUN Creatinine Ratio 20.5 (10-20); Creatinine Clr Calc Pharmacy 41.2 ml/min
[2019-12-07] MEDS ORDERED: POTASSIUM CHLORIDE 20 MEQ/15 ML UDC PO ONE (09:00)
[2019-12-07] MEDS: CITALOPRAM 20 MG TAB PO SCH (09:09)
[2019-12-07] MEDS: ASPIRIN 81 MG ECTAB PO SCH (09:11)
[2019-12-07] MEDS: ATORVASTATIN 20 MG TAB PO SCH (09:13)
[2019-12-07] MEDS: AMLODIPINE BESYLATE 5 MG TAB PO SCH (09:14)
[2019-12-07] MEDS: HEPARIN SOD 5,000 UNIT/0.5 ML VIAL SQ SCH ×2 (09:20→20:23)
[2019-12-07] MEDS: levETIRAcetam 500 MG TAB PO SCH ×2 (09:44→20:22)
--- NOTE | 2019-12-07 15:02 | Hospitalist Progress Note ---
Date of Service December 07, 2019 Assessment & Plan (1) Seizure: Breakthrough seizure H/O seizure in the past Likely precipitated due to poor sleep and medication Non compliance No history of fall/head trauma --CT head: No acute intracranial findings. No change in appearance of the brain with stable postoperative findings status post right sided craniotomy and resection of the right sphenoid wing meningioma. 1.7 cm nodular density overlying the posterior aspect of the cribriform plate which may reflect residual/recurrent meningioma. --Not on any antiseizure medications prior to admission --EEG:This was an abnormal EEG given frequent to near continuous focal slowing over the right frontotemporal region consistent with known encephalomalacia in that region. Breach rhythm c/w prior right craniotomy. No seizures or epileptiform discharges were seen. --Continue Keppra 500 mg BID --Appreciate Neurology Input --Continue Fall/seizure/aspiration precautions --Ativan PRN seizure --Needs follow up with Neurology upon discharge Right basilar opacity likely atelectasis CXR:Mild right basilar opacity which may reflect pneumonia or atelectasis. Radiographic follow up is recommended. Cardiomegaly without evidence for pulmonary edema. 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 Chronic (3) Dementia: Oriented to person at baseline Reorient frequently to avoid delirium (4) Dyslipidemia: Continue Lipitor (5) Hypertension: BP Variable Not on any antihypertensives at home Continue amlodipine 5mg Monitor Sinus Bradycardia Hold Atenolol for now Monitor Ambulatory Dysfunction Uses walker to ambulate at baseline Drags her left leg as per family PT/OT: Recommends SNF DVT Px: Heparin SQ Code Status Full Code as per my discussion with patient's daughter-POA Disposition SNF [facility] bed available Case management consulted for discharge planning Admission and Anticipated Discharge Date Admission Date: December 05, 2019 Subjective Patient is seen and examined at bedside Lying in bed comfortably History difficult to obtain secondary to dementia, language barrier Sinus Bradycardia noted on monitor Waiting for rehab placement Review of Systems Review of Systems: Other Difficult to obtain due to language barrier/dementia Physical Exam Physical Exam: Physical Exam: Vitals signs as noted above General Appearance:Moderately built and nourished, no apparent distress Head: normocephalic, Atraumatic Eyes: normal inspection, EOMI,PERRLA, Left eye ptosis Neck: supple, Trachea midline Respiratory/Chest: Normal breath sounds, CTA, No accessory muscle use Cardiovascular: S1, S2, No murmur, bradycardia Abdomen/GI:Soft, Non tender, Bowel sounds present Extremities/Musculoskelatal:normal inspection, no edema Neurologic/Psych:Alert, awake, oriented to self, grossly no focal neurological deficits Skin: normal color, warm Results & Data Results & Data ([facility]) Vital Signs (Past 12 Hours) Vital Signs Temp Pulse Resp BP Pulse Ox 12/07/19 07:11 35.9 C L 49 L 18 189/71 H 95 12/07/19 05:30 36.2 C L 52 L 18 168/89 H 96 Laboratory Results Short CBC 12/07/19 Range/Units 06:47 WBC 4.70 L (4.8-10.8) K/uL Hgb 13.2 (12.0-16.0) g/dL Hct 40.0 (37-47) % Plt Count 182 (130-400) K/uL BMP 12/07/19 06:47 Sodium 145 Potassium 3.4 L Chloride 110 H Carbon Dioxide 29 BUN 16 D Creatinine 0.78 Glucose 81 Calcium 9.0 (1) Dementia Dementia behavioral disturbance: without behavioral disturbance Dementia type: unspecified type Qualified Code(s): F03.90 - Unspecified dementia without behavioral disturbance (2) Hypertension Hypertension type: unspecified Qualified Code(s): I10 - Essential (primary) hypertension
[2019-12-07] MEDS: OLANZapine 10 MG/2.1 ML SDV IM PRN (20:20)
[2019-12-08 07:10] LABS: Calcium 8.6 mg/dl (8.5-10.1); Creatinine Clr Calc Pharmacy 36.1 ml/min; Est GFR (African American) 67.1; Est GFR (Non-African American) 57.9; Magnesium 2.2 mg/dl (1.8-2.4); Potassium 3.5 mmol/L (3.5-5.1)
[2019-12-08] MEDS: HEPARIN SOD 5,000 UNIT/0.5 ML VIAL SQ SCH ×2 (08:33→20:23)
[2019-12-08] MEDS: ATORVASTATIN 20 MG TAB PO SCH (08:34)
[2019-12-08] MEDS: ASPIRIN 81 MG ECTAB PO SCH (08:34)
[2019-12-08] MEDS: AMLODIPINE BESYLATE 5 MG TAB PO SCH (08:34)
[2019-12-08] MEDS: CITALOPRAM 20 MG TAB PO SCH (08:34)
[2019-12-08] MEDS: levETIRAcetam 500 MG TAB PO SCH ×2 (08:34→20:22)
[2019-12-08] MEDS ORDERED: POTASSIUM CHLORIDE 20 MEQ/15 ML UDC PO STA (09:18)
--- NOTE | 2019-12-08 15:12 | Hospitalist Progress Note ---
Date of Service December 08, 2019 Assessment & Plan (1) Seizure: Breakthrough seizure H/O seizure in the past Likely precipitated due to poor sleep and medication Non compliance No history of fall/head trauma --CT head: No acute intracranial findings. No change in appearance of the brain with stable postoperative findings status post right sided craniotomy and resection of the right sphenoid wing meningioma. 1.7 cm nodular density overlying the posterior aspect of the cribriform plate which may reflect residual/recurrent meningioma. --Not on any antiseizure medications prior to admission --EEG:This was an abnormal EEG given frequent to near continuous focal slowing over the right frontotemporal region consistent with known encephalomalacia in that region. Breach rhythm c/w prior right craniotomy. No seizures or epileptiform discharges were seen. --Continue Keppra 500 mg BID --Appreciate Neurology Input --Continue Fall/seizure/aspiration precautions --Ativan PRN seizure --Needs follow up with Neurology upon discharge --Continue current management --Waiting for SNF placement Right basilar opacity likely atelectasis CXR:Mild right basilar opacity which may reflect pneumonia or atelectasis. Radiographic follow up is recommended. Cardiomegaly without evidence for pulmonary edema. 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 Chronic (3) Dementia: Oriented to person at baseline Reorient frequently to avoid delirium (4) Dyslipidemia: Continue Lipitor (5) Hypertension: BP Variable Not on any antihypertensives at home Continue amlodipine 5mg Monitor Sinus Bradycardia Hold Atenolol for now Monitor Ambulatory Dysfunction Uses walker to ambulate at baseline Drags her left leg as per family PT/OT: Recommends SNF DVT Px: Heparin SQ Code Status Full Code as per my discussion with patient's daughter-POA Disposition SNF [facility] bed available Case management consulted for discharge planning Admission and Anticipated Discharge Date Admission Date: December 05, 2019 Subjective Patient is seen and examined at bedside Agitated overnight as per RN History difficult to obtain secondary to dementia, language barrier No new complaints Waiting for rehab placement on Review of Systems Review of Systems: All systems reviewed & are unremarkable except as noted in HPI & below Physical Exam Physical Exam: Physical Exam: Vitals signs as noted above General Appearance:Moderately built and nourished, no apparent distress Head: normocephalic, Atraumatic Eyes: normal inspection, EOMI,PERRLA, Left eye ptosis Neck: supple, Trachea midline Respiratory/Chest: Normal breath sounds, CTA, No accessory muscle use Cardiovascular: S1, S2, No murmur, bradycardia Abdomen/GI:Soft, Non tender, Bowel sounds present Extremities/Musculoskelatal:normal inspection, no edema Neurologic/Psych:Alert, awake, oriented to self, grossly no focal neurological deficits, hearing impairment Skin: normal color, warm Results & Data Results & Data ([facility]) Vital Signs (Past 12 Hours) Vital Signs Temp Pulse Resp BP Pulse Ox 12/08/19 15:00 36.7 C 63 18 155/73 H 98 12/08/19 07:07 36.4 C L 54 L 20 114/73 94 Laboratory Results [facility] 12/08/19 06:20 Sodium 145 Potassium 3.5 Chloride 114 H Carbon Dioxide 26 BUN 24 H Creatinine 0.89 Glucose 88 Calcium 8.6 (1) Dementia Dementia behavioral disturbance: without behavioral disturbance Dementia type: unspecified type Qualified Code(s): F03.90 - Unspecified dementia without behavioral disturbance (2) Hypertension Hypertension type: unspecified Qualified Code(s): I10 - Essential (primary) hypertension
[2019-12-08] MEDS: OLANZapine 10 MG/2.1 ML SDV IM PRN ×2 (16:38→20:25)
[2019-12-09 07:45] LABS: BUN Creatinine Ratio 25.1 (10-20); Creatinine Clr Calc Pharmacy 40.7 ml/min; Est GFR (African American) 77.5; Est GFR (Non-African American) 66.8
[2019-12-09 08:09] VITALS: PULSE 61; TEMP 97.7; O2SAT 97
[2019-12-09] MEDS: levETIRAcetam 500 MG TAB PO SCH ×2 (08:11→21:27)
[2019-12-09] MEDS: ASPIRIN 81 MG ECTAB PO SCH (08:11)
[2019-12-09] MEDS: AMLODIPINE BESYLATE 5 MG TAB PO SCH (08:11)
[2019-12-09] MEDS: ATORVASTATIN 20 MG TAB PO SCH (08:11)
[2019-12-09] MEDS: HEPARIN SOD 5,000 UNIT/0.5 ML VIAL SQ SCH ×2 (08:11→21:27)
[2019-12-09] MEDS: CITALOPRAM 20 MG TAB PO SCH (08:11)
--- NOTE | 2019-12-09 09:54 | Hospitalist Progress Note ---
Date of Service December 09, 2019 Assessment & Plan (1) Seizure: Breakthrough seizure H/O seizure in the past Likely precipitated due to poor sleep and medication Non compliance No history of fall/head trauma --CT head: No acute intracranial findings. No change in appearance of the brain with stable postoperative findings status post right sided craniotomy and resection of the right sphenoid wing meningioma. 1.7 cm nodular density overlying the posterior aspect of the cribriform plate which may reflect residual/recurrent meningioma. --Not on any antiseizure medications prior to admission --EEG:This was an abnormal EEG given frequent to near continuous focal slowing over the right frontotemporal region consistent with known encephalomalacia in that region. Breach rhythm c/w prior right craniotomy. No seizures or epileptiform discharges were seen. --Continue Keppra 500 mg BID - Neurology On Case --Continue Fall/seizure/aspiration precautions --Ativan PRN seizure --Needs follow up with Neurology upon discharge --Continue current management --Waiting for SNF placement, likely Right basilar opacity likely atelectasis CXR:Mild right basilar opacity which may reflect pneumonia or atelectasis. Radiographic follow up is recommended. Cardiomegaly without evidence for pulmonary edema. 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 Chronic (3) Dementia: Oriented to person at baseline Reorient frequently to avoid delirium (4) Dyslipidemia: Continue Lipitor (5) Hypertension: BP Variable Not on any antihypertensives at home Continue amlodipine 5mg Monitor Sinus Bradycardia Hold Atenolol for now Monitor Ambulatory Dysfunction Uses walker to ambulate at baseline Drags her left leg as per family PT/OT: Recommends SNF DVT Px: Heparin SQ Code Status Full Code as per discussion with patient's daughter-POA Disposition SNF when bed available, likely tomorrow Case management consulted for discharge planning labs checked ROS-Offered no history Physical Exam Gen-Awake, NAD, Afebrile Head-NCAT, EOMI, PERRLA, Anicteric Sclera, No Posterior Pharyngeal Erythema Neck-Supple, No JVD, No Thyromegaly, No Masses, No LAD, No Bruits Lungs-Clear to Auscultation Bilaterally, No Rales, No Rhonchi, No Wheezing, No Crepitus Chest-No S4, +S1, +S2, No S3, No Murmurs, No Rubs, No Gallops, No Ectopy Abdomen-Soft, Bowel Sounds Present, Non Tender, Non Distended, No Hepatomegaly, No Splenomegaly, No Palpable Masses, No Rebound, No Rigidity, No Guarding Musculoskeletal-Full Range of Motion Bilaterally, No CVAT Extremities-No Cyanosis, No Clubbing, No Edema Nuero-Cranial Nerves II-XII grossly intact, Motor WNL, DTRs WNL, Strength WNL, Non Focal Psych-Normal Mood Admission and Anticipated Discharge Date Admission Date: December 05, 2019 Results & Data Results & Data ([facility]) Vital Signs (Past 12 Hours) Vital Signs Temp Pulse Resp BP BP Pulse Ox 12/09/19 08:08 36.5 C 61 20 167/73 H 97 12/08/19 23:31 36.4 C L 62 18 138/78 95 (1) Dementia Dementia behavioral disturbance: without behavioral disturbance Dementia type: unspecified type Qualified Code(s): F03.90 - Unspecified dementia without behavioral disturbance (2) Hypertension Hypertension type: unspecified Qualified Code(s): I10 - Essential (primary) hypertension
[2019-12-09] MEDS: OLANZapine 10 MG/2.1 ML SDV IM PRN (14:35)
[2019-12-10 06:30] LABS: Hematocrit (blood only) 40.1 % (37-47); Hemoglobin 13.3 g/dL (12.0-16.0); Mean Corpuscular Hemoglobin 28.9 pg (25-34); Mean Corpuscular Hgb Conc 33.2 g/dL (32-36); Mean Platelet Volume 10.3 fL (7.4-10.4); Platelet Count 193 K/uL (130-400); RDW Coefficient of Variation 15.2 % (11.5-14.5); RDW Standard Deviation 48.8 fL (36.4-46.3); Red Blood Count 4.61 M/uL (4.2-5.4); White Blood Count 4.87 K/uL (4.8-10.8)
[2019-12-10 07:01] LABS: BUN Creatinine Ratio 25.2 (10-20); Calcium 8.9 mg/dl (8.5-10.1); Creatinine Clr Calc Pharmacy 36.6 ml/min; Est GFR (Non-African American) 58.7
[2019-12-10] MEDS: AMLODIPINE BESYLATE 5 MG TAB PO SCH (07:56)
[2019-12-10] MEDS: HEPARIN SOD 5,000 UNIT/0.5 ML VIAL SQ SCH (07:56)
[2019-12-10] MEDS: levETIRAcetam 500 MG TAB PO SCH (07:56)
[2019-12-10] MEDS: CITALOPRAM 20 MG TAB PO SCH (07:57)
[2019-12-10] MEDS: ATORVASTATIN 20 MG TAB PO SCH (07:57)
[2019-12-10] MEDS: ASPIRIN 81 MG ECTAB PO SCH (07:57)
--- NOTE | 2019-12-10 08:06 | Discharge Summary ---
Date of Service December 10, 2019 Admission HPI Per Admitting Provider Patient is an 89-year-old female with history of large right temporal lobe meningioma S/P resection with history of significant encephalomalacia and vascular changes, H/O seizure, multifocal dementia, dyslipidemia, hypertension, ambulatory dysfunction, depression and other problems presents with history of seizure-like episode. Patient cannot speak [place] and is in postictal state and so most of the information is obtained from patient's daughter, medical records and ER staff. Patient was noted to be " not herself" this morning and was moving slowly as per the daughter. Patient had breakfast and took her m edications this morning and complained of poor sleep overnight.. She reported headache and her daughter recommended her to have a nap. Patient's daughter noted " gurgling noise" and when checked, patient had lot of foaming from her mouth and was unresponsive for about 20 to 25 minutes. Patient's daughter called 911 and brought her to ED for further evaluation. Patient has not been taking her Keppra since about 1-1/2 years. Currently she is not on any antiseizure medications. Patient was noted to be confused while in ED which was slowly resolving. No known history of chest pain, SOB, dizziness, cough, wheezing, fever, chills, fall, head trauma, new weakness, numbness, change in vision, slurred speech, facial deformity, bowel/bladder incontinence, nausea, vomiting, abdominal pain, diarrhea, dysuria, recent travel, sick contact, recent change in medications. Admission Exam Per Admitting Provider Vitals signs as noted above General Appearance:Moderately built and nourished, no apparent distress Head: normocephalic, Atraumatic Eyes: normal inspection, EOMI,PERRLA, Left eye ptosis Neck: supple, Trachea midline Respiratory/Chest: Normal breath sounds, CTA, No accessory muscle use Cardiovascular: S1, S2, No murmur Abdomen/GI:Soft, Non tender, Bowel sounds present Extremities/Musculoskelatal:normal inspection, no edema Neurologic/Psych:Alert, awake, oriented to self, grossly no focal neurological deficits Skin: normal color, warm Principal Diagnosis Breakthrough seizures Right basilar opacity likely atelectasis History of meningioma: Dementia Dyslipidemia: Hypertension: Sinus Bradycardia Ambulatory Dysfunction Discharge Exam Gen-NAD, Afebrile Head-NCAT, EOMI, PERRLA, Anicteric Sclera, No Posterior Pharyngeal Erythema Neck-Supple, No JVD, No Thyromegaly, No Masses, No LAD, No Bruits Lungs-Clear to Auscultation Bilaterally, No Rales, No Rhonchi, No Wheezing, No Crepitus Chest-No S4, +S1, +S2, No S3, No Murmurs, No Rubs, No Gallops, No Ectopy Abdomen-Soft, Bowel Sounds Present, Non Tender, Non Distended, No Hepatomegaly, No Splenomegaly, No Palpable Masses, No Rebound, No Rigidity, No Guarding Musculoskeletal-Full Range of Motion Bilaterally, No CVAT Extremities-No Cyanosis, No Clubbing, No Edema Nuero-Cranial Nerves II-XII grossly intact, Motor WNL, DTRs WNL, Strength WNL, Non Focal Psych-Flat, Somnolent Discharge Data Allergies Allergy/AdvReac Type Severity Reaction Status Date / Time haloperidol AdvReac Unknown Confusion. Verified 12/05/19 13:34 lorazepam AdvReac Unknown Confusion. Verified 12/05/19 13:34 Consultations 12/05/19 14:19 ED Decision to Admit Stat 12/05/19 16:51 Consult Case Management - Discharge Planning Routine Consult Neurology Routine Ordered Studies 12/05/19 12:55 CT head/brain wo con Stat Current Diagnoses Hyperlipidemia, unspecified (12/05/19) Unspecified dementia without behavioral disturbance (12/05/19) Essential (primary) hypertension (12/05/19) Unspecified convulsions (12/05/19) Personal history of other benign neoplasm (12/05/19) Allergies haloperidol Adverse Reaction (Unknown, Verified 12/05/19 13:34) Confusion. lorazepam Adverse Reaction (Unknown, Verified 12/05/19 13:34) Confusion. Height/Weight/Isolation Height 5 ft 3 in Weight 58.7 kg Chemistry 12/09/19 12/10/19 07:01 06:07 Sodium 145 146 H Potassium 4.0 4.0 Chloride 113 H 115 H Carbon Dioxide 28 28 Anion Gap 4.0 3.0 BUN 20 H 22 H Creatinine 0.79 0.88 Glucose 80 81 Hospital Course (1) Seizure: Breakthrough seizure H/O seizure in the past Likely precipitated due to poor sleep and medication Non compliance No history of fall/head trauma --CT head: No acute intracranial findings. No change in appearance of the brain with stable postoperative findings status post right sided craniotomy and resection of the right sphenoid wing meningioma. 1.7 cm nodular density overlying the posterior aspect of the cribriform plate which may reflect residual/recurrent meningioma. --Not on any antiseizure medications prior to admission --EEG:This was an abnormal EEG given frequent to near continuous focal slowing over the right frontotemporal region consistent with known encephalomalacia in that region. Breach rhythm c/w prior right craniotomy. No seizures or epileptiform discharges were seen. --Continue Keppra 500 mg BID - Neurology On Case --Continue Fall/seizure/aspiration precautions --Needs follow up with Neurology upon discharge --SNF placement today Right basilar opacity likely atelectasis CXR:Mild right basilar opacity which may reflect pneumonia or atelectasis. Radiographic follow up is recommended. Cardiomegaly without evidence for pulmonary edema. 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 Chronic (3) Dementia: Oriented to person at baseline Reorient frequently to avoid delirium (4) Dyslipidemia: Continue Lipitor (5) Hypertension: Continue amlodipine 5mg Monitor Sinus Bradycardia Ambulatory Dysfunction Uses walker to ambulate at baseline Drags her left leg as per family PT/OT: Recommends SNF Code Status Full Code as per discussion with patient's daughter-POA Disposition SNF today Case management consulted for discharge planning labs checked Total Time Total Time Spent Total Time Spent (In Minutes): 45 mins Total Time Includes: Examination of the Patient, Discharge Planning and Medication Reconciliation Discharge Plan Discharge Items Patient Disposition: Transfer Residential Fac Reason For Visit: SEIZURE Discharge Diagnosis: Breakthrough seizures Right basilar opacity likely atelectasis History of meningioma: Dementia Dyslipidemia: Hypertension: Sinus Bradycardia Ambulatory Dysfunction Condition on Discharge: Fair Health Concerns: Aspiration and Seizure precautions Goals: Maximize Function Activity: Resume your previous activity Lifting: None Bathing: No limitations Exercise/Sports: None Driving/Machine Use: None Weightbearing: Full weightbearing Non-emergency contact: Primary Care Provider Call non-emergency contact if: you have any medication questions Follow-up/Referrals: Junior Cantu MD [Primary Care Provider] - Diet: Regular Addtl Attending Provider Instructions: None Stand-Alone Forms: Screen Fix Gibson, Smoking Cessation Skilled Items Patient informed of condition?: No DNR: No Discharge Level of Care: Skilled Communicable Disease: No Discharge Prognosis: Stable Lines: None Urinary Catheter: No Medications and DC Order Prescriptions: New amlodipine [Norvasc] 5 mg Tablet 5 mg PO QAM Qty: 30 RF: 0 levetiracetam [Keppra] 500 mg Tablet 500 mg PO BID Qty: 60 RF: 0 Continued atenolol [Tenormin] 50 mg Tablet 50 mg PO DAILY Qty: 0 RF: 0 aspirin [Aspirin Low Dose] 81 mg Tablet,Delayed Release (Dr/Ec) 81 mg PO DAILY Qty: 0 RF: 0 citalopram [Celexa] 20 mg Tablet 20 mg PO DAILY Qty: 0 RF: 0 atorvastatin [Lipitor] 20 mg Tablet 20 mg PO DAILY Qty: 0 RF: 0 Discharge Orders: Discharge Order (Routine); Ordered 12/10/19 Ordered By: Roni Marie Admission Data Admit Date/Time: 12/05/19 15:33 Attending Provider: Roni Marie Admit Provider: Felix Arroyo Primary Care Provider: Junior Cantu Other Providers: Nay Patel ; Felix Arroyo ; Farzana Casarez
[2019-12-10 12:31] VITALS: BP 138/78
== END 2019-12-10 14:40 | DRG 101 ==
LOC: ED 12:42 → 2W 15:33 → SUATTDRO 15:33 → 2W 16:31